=== PATIENT | female | born 1975 | race Hispanic/Latino ===

== ENCOUNTER 2023-06-23 20:15 | Emergency (ER) | payer OTHER ==
--- OUTSIDE RECORDS SUMMARY | 2023-06-23 20:24 | XMS REPORT | Continuity of Care Document ---
Author Name Unknown Address [address] [facility] [place] [address] [facility] Address [address] 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 Role Phone CANDELARIA AARON Primary Care Physician KASEY Mccain Attending Clinician Unavailable OBI-GLORIAGayleROME Attending Clinician Unavailab le OBI-GLORIATHOMASMA Attending Clinician Unavailab JACKIE Daly Attending Clinician Unavaila JACKIE Wood Attending Clinician UnavailCandida Zuniga RN Attending Clinician [phone] JANAY ACOSTA Attending Clinician Unavailab Janay Olvera Attending Clinician [phone] LUDMILA MCMULLEN Attending Clinician LUDMILA Davis Attending Clinician LATASHA Camarillo Attending Clinician Unavailable Latasha Madden MD Attending Clinician [phone] Doctor Unassigned, [place] Attending Clinician U SAMRA Joy Attending Clinician UnavailSamra Choudhury Attending Clinician KATHY TOMLIN Attending Clinician Unavailable Viv Sol MA Attending Clinician Unavailabl e 2, [facility] Attending Clinician Unavailable Candelaria Aaron NP Attending Clinician [phone] CHEN MASTERS Attending Clinician Unavailable CANDELARIA AARON Attending Clinician Unavailab diana Rome MD, Jackie Jaramillo Attending Clinician [phone] Kathy Tomlin PA-C Attending Clinician [phone] Unknown, Attending Attending Clinician Unavailab le Vaccine, [facility] Attending Clinician Unavailable Therapy, [facility]fusion Attending Clinician Unavailable Myesha GRAF, Walker Easton Attending Clinician [phone] WALKER SILVA Attending Clinician Unavailable Brianne Carlos RN Attending Clinician Unavailable Joshua DESAI, Sarah Attending Clinician [phone] SARAH LEWIS Attending Clinician UnavailTASNEEM Falk Attending Clinician Unavailable Abel GRAF, Kayce Puri Attending Clinician [phone] KAYCE ROMAN Attending Clinician Essie De Paz RN, Teri Jaramillo Attending Clinician Unavailab diana Zavala MD, Tasneem Attending Clinician [phone] Anene VEGETABLES COOK, Stephanie Attending Clinician [phone] Provider, [facility] Attending Clinician Un available Tejinder JOLLY, Daniella Palacios Attending Clinician Unavailab Corinne Hernandez MD Attending Clinician [phone] Cintia Sullivan MD Attending Clinician [phone] Jovi AVELAR, Chiquita Erwin Attending Clinician Unavail able CORINNE HATFIELD Attending Clinician UnavailEdmar Fuller PTA Attending Clinician Unavaila KINGS Vargas Attending Clinician Unavailable Viv Chan PT Attending Clinician Unavailab NIKOLAY Beltrán Attending Clinician Unavail able CINTIA SULLIVAN Attending Clinician Unavailable Nikolay Roberts DO Attending Clinician [phone] Only, [facility] Test Attending Clinician Unavailable Jonah Gomez MD Attending Clinician [phone] Rojas MARIE, Balwinder Attending Clinician Unavailab le Lab, [facility] Fam Pob I Attending Clinician Unavailab le Omaghomi VEGETABLES COOK, Domemi Attending Clinician [phone] SOPHIE MURGUIA Attending Clinician Unavailabl JANAY NicoleE Admitting Clinician Unavailab LATASHA Alvarez Admitting Clinician Unavailable Latasha Madden MD Admitting Clinician CHEN MASTERS Admitting Clinician Unavailable KATHY TOMLIN Admitting Clinician Unavailable CORINNE HATFIELD Admitting Clinician Unavailabl e Payers Payer Name Policy Type Policy Number Effective Date Expirati on Date Source MEDICARE PART A \\T\\ [id number] 2009 00:00:00 [place]ICAID OF [place] [id number] 2015 00:00:00 Problems Condition Name Condition Details Condition Category Status Onset Date Resolution Date Last Treatment Date Treating Clinician Comments Source Encounter for colorectal cancer screening Encounter for colorectal cancer screening Disease Active 2022-03 00:00: 00 [facility] Muscle spasm of right lower extremity Muscle spasm of right lower extremity Disease Active 06-05 00:00: 00 [facility] Obesity (BMI 30-39.9) Obesity (BMI 30-39.9) Disease Active 2019-03 00:00: 00 [facility] Chronic pain of right knee Chronic pain of right knee Disease Active 2019-03 00:00: 00 [facility] Hot flashes Hot flashes Disease Active 2019-03 00:00: 00 [facility] Hydradenit is Hydradenit is Disease Active 2019-03 00:00: 00 [facility] Morbid obesity with body mass index of 40.0-49.9 Morbid obesity with body mass index of 40.0-49.9 Disease Active 2018-03 00:00: 00 [facility] Skin lesions Skin lesions Disease Active 11-02 00:00: 00 [facility] Hypovitami nosis D Hypovitami nosis D Disease Active 05-07 00:00: 00 [facility] ESR raised ESR raised Disease Active 05-04 00:00: 00 [facility] 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 worsens in the winter [facility] Depression Depression Disease Active U [facility] Bipolar 1 disorder Bipolar 1 disorder Disease Active [facility] Hyperlipid emia Hyperlipid emia Disease Active [facility] Allergies, Adverse Reactions, Alerts Allergy Name Allergy Type Status Severity Reaction(s) Onset Date Inactive Date Treating Clinician Comments Source Valacycl ovir Hcl Propensi ty to adverse reaction s Active Rash 04-09 00:00: 00 [facility] VALACYCL OVIR HCL DRUG INGREDI Active Rash 04-09 00:00: 00 [facility] Social History Social Habit Start Date Stop Date Quantity Comments Source Gender identity [facility] Sexual orientation [facility] Alcohol intake 2023-04-04 00:00:00 2023-04-04 00:00:00 0 /d [facility] History of Social function 2023-03-25 00:00:00 2023-03-25 00:00:00 [facility] Tobacco use and exposure 2023-02-25 00:00:00 2023-02-25 00:00:00 Smokeless tobacco non-user [facility] Exposure to SARS-CoV-2 (event) 2022-03-20 00:00:00 2022-03-30 09:15:00 Not sure [facility] Sex Assigned At 1975 00:00:00 1975 00:00:00 [facility] Smoking Status Start Date Stop Date Source Never smoked tobacco [facility] Medications Ordered Medication Name Filled Medication Name Start Date Stop Date Current Medication? Ordering Clinician Indication Dosage Frequency Signature (SIG) Comments Components Source butalbital- acetaminoph en-caff (ESGIC) 50-325-40 mg tablet 1 tablet 06-18 00:15: 00 06-18 00:19 :00 No 1{tbl} 1 tablet, Oral, ONCE, 1 dose, On 06/18/23 at 1915, COLBY [facility] benzonatate 100 mg capsule 06 00:00: 00 Yes [id number] 100mg Take 1 capsule by mouth 3 (three) times daily as needed for Cough. [facility] topiramate 50 mg tablet 04-04 00:00: 00 Yes [id number] 50mg Take 1 tablet by mouth in the morning and 1 tablet in the evening. [facility] water for irrigation irrigation solution 03-25 15:55: 00 03-25 16:42 :06 No PRN, Starting on Tue03/25/23 at 0955, Until Tue03/25/23 at 1042, Routine, Intra-op [facility] simethicone (GAS RELIEF (SIMETHICON E)) 40 mg/0.6 mL drops 03-25 15:55: 00 03-25 16:42 :06 No PRN, Starting on Tue03/25/23 at 0955, Until Tue03/25/23 at 1042, Routine, Intra-op [facility] lactated ringers IV infusion 1,000 mL 03-25 14:45: 00 03-25 14:44 :00 No 1000mL at 42 mL/hr, 1,000 mL, IV Infusion, ONCE, 1 dose, On Tue03/25/23 at 0845, Routine, DSU Pre-op [facility] topiramate 50 mg tablet 03-22 00:00: 00 04-04 00:00 :00 No [id number] 50mg Take 1 tablet by mouth in the morning and 1 tablet in the evening. [facility] peg-electro lyte soln (GOLYTELY) 236-22.74-6 .74 -5.86 gram solution 2022-03 2-21 00:00: 00 03-04 05:59 :00 No 4000mL Take 4,000 mL by mouth once now for 1 dose. [facility] nystatin-tr iamcinolone cream 2022-03 00:00: 00 Yes [id number] Apply to area(s) 2 (two) times daily. [facility] topiramate 25 mg tablet 2022-03 00:00: 00 03-22 00:00 :00 No [id number] Take 1 tablet by mouth 2 (two) times daily for 7 days, THEN 2 tablets 2 (two) times daily for 21 days. [facility] ketorolac (TORADOL) injection 30 mg 2022-03 20:15: 00 02-14 19:25 :00 No [id number] 30mg [facility] lamoTRIgine (LAMICTAL) 100 mg tablet 2022-03 12:52: 43 02-14 00:00 :00 No 100mg Take 100 mg by mouth at bedtime. [facility] SUMAtriptan 25 mg tablet 2022-03 00:00: 00 Yes [id number] 25 mg Po x 1 , may repeat dose x 1 after at least 2 Hr, may give up to 100 mg /24Hr [facility] ketorolac (TORADOL) injection 30 mg 2022-03 20:45: 00 02-10 21:20 :00 No 30mg 30 mg, Slow IV Push, ONCE, 1 dose, On Marcie 02/10/23 at 1445, COLBY [facility] sodium chloride (NS) injection 5 mL 2022-03 20:25: 29 Yes 5mL 5 mL, Intravenou s, PRN, Starting on Marcie 02/10/23 at 1425, Until Discontinu ed, Routine, IV line flushing [facility] nirmatrelvi r-ritonavir (PAXLOVID) 300 mg (150 mg x 2)-100 mg tablet 11-05 00:00: 00 02-14 00:00 :00 No [id number] 3{tbl} Take 3 tablets by mouth in the morning and 3 tablets in the evening. [facility] meloxicam 15 mg tablet 03-31 00:00: 00 02-14 00:00 :00 No [id number] 15mg Take 1 tablet by mouth in the morning. Can NOT take with other NSAID's (Ibuprofen ) [facility] nystatin 100,000 unit/gram cream 2021-03 215 00:00: 00 02-14 00:00 :00 No [id number] Apply to area(s) 2 (two) times daily. [facility] Arm Brace (WRIST BRACE MEDIUM) [facility] 2021-03 00:00: 00 Yes [id number] Use as directed, left wrist [facility] ergocalcife rol, vitamin d2, (VITAMIN D2) 1,250 mcg (50,000 unit) capsule 2021-03 00:00: 00 02-14 00:00 :00 No [id number] Take 1 capsule by mouth weekly. [facility] Arm Brace (WRIST BRACE MEDIUM) [facility] 2021-03 00:00: 00 02-14 00:00 :00 No [id number] 9103 Use as directed, left wrist [facility] diclofenac 75 mg EC tablet 2021-03 00:00: 00 02-14 00:00 :00 No [id number] 75mg Take 1 tablet by mouth 2 (two) times daily with meals as needed for Pain. [facility] metoprolol succinate XL 25 mg 24 hr tablet 2021-03 00:00: 00 Yes 25mg Take 1 tablet by mouth in the morning. [facility] ibuprofen (IBU) tablet 800 mg 08-08 17:19: 00 08-08 17:26 :00 No [id number] 800mg [facility] bromphenira mine-pseudo ephedrine-D M (BROMFED DM) 2-30-10 mg/5 mL syrup 08-08 00:00: 00 02-08 00:00 :00 No [id number] 5mL Take 5 mL by mouth 4 (four) times daily as needed for Congestion /Allergies or Cough. [facility] bromphenira mine-pseudo ephedrine-D M (BROMFED DM) 2-30-10 mg/5 mL syrup 05-05 00:00: 00 08-08 00:00 :00 No [id number] 5mL Take 5 mL by mouth 4 (four) times daily as needed for Congestion /Allergies . [facility] benzonatate 100 mg capsule 05-05 00:00: 00 08-08 00:00 :00 No [id number] 200mg Take 2 capsules by mouth every 8 (eight) hours as needed for Cough. [facility] ergocalcife rol, vitamin d2, (VITAMIN D2) 1,250 mcg (50,000 unit) capsule 2020-03 00:00: 00 02-08 00:00 :00 No [id number] Take 1 capsule by mouth weekly. [facility] lamoTRIgine (LAMICTAL) 100 mg tablet 2020-03 09:49: 49 Yes 100mg Take 100 mg by mouth at bedtime. [facility] nystatin 100,000 unit/gram cream 2020-03 00:00: 00 02-08 00:00 :00 No [id number] Apply to area(s) 2 (two) times daily. [facility] tiZANidine 2 mg tablet 2020-03 00:00: 00 02-08 00:00 :00 No [id number] 2mg Take 1 tablet by mouth every 8 (eight) hours as needed (muscle spasms/rig ht knee pain). [facility] Diclofenac Sodium (VOLTAREN) 1 % gel 06-05 00:00: 00 02-08 00:00 :00 No [id number] Apply to area(s) 4 (four) times daily. Apply 4 g qid [facility] acetaminoph en (TYLENOL ARTHRITIS PAIN) 650 mg CR tablet 06-05 00:00: 00 02-08 00:00 :00 No [id number] 650mg Take 1 tablet by mouth every 8 (eight) hours as needed for Pain. [facility] Leg Brace (ANANYA KNEE BRACE) Misc 06-05 00:00: 00 02-08 00:00 :00 No [id number] Use as directed [facility] menthol (BIOFREEZE, MENTHOL,) 4 % gel 06-05 00:00: 00 02-08 00:00 :00 No [id number] Apply 4g QID PRN to affect muscle [facility] nystatin 100,000 unit/gram cream 2019-03 00:00: 00 02-25 00:00 :00 No [id number] Apply to area(s) 2 (two) times daily. [facility] clindamycin 1 % topical solution 2019-03 1 00:00: 00 02-08 00:00 :00 No [id number] Use twice a day as needed at the first sign of a lesion under the arm. Continue until 1 day after lesion is gone. [facility] Immunizations Ordered Immunization Name Filled Immunization Name Date Status Comments Source SARS-COV-2 COVID-19 VACCINE 12 YRS+, BIVALENT 0.5ML, IM, (MODERNA BOOSTER) 2022-02-08 00:00:00 Completed [facility] SARS-COV-2 COVID-19 VACCINE 12 YRS+, BIVALENT 0.5ML, IM, (MODERNA BOOSTER) 2022-02-08 00:00:00 Completed [facility] SARS-COV-2 COVID-19 VACCINE 12 YRS+, BIVALENT 0.5ML, IM, (MODERNA BOOSTER) 2022-02-08 00:00:00 Completed [facility] SARS-COV-2 COVID-19 VACCINE 12 YRS+, BIVALENT 0.5ML, IM, (MODERNA BOOSTER) 2022-02-08 00:00:00 Completed [facility] SARS-COV-2 COVID-19 VACCINE 12 YRS+, BIVALENT 0.5ML, IM, (MODERNA BOOSTER) 2022-02-08 00:00:00 Completed [facility] SARS-COV-2 COVID-19 VACCINE 12 YRS+, BIVALENT 0.5ML, IM, (MODERNA BOOSTER) 2022-02-08 00:00:00 Completed [facility] SARS-COV-2 COVID-19 VACCINE 12 YRS+, BIVALENT 0.5ML, IM, (MODERNA BOOSTER) 2022-02-08 00:00:00 Completed [facility] SARS-COV-2 COVID-19 VACCINE 12 YRS+, BIVALENT 0.5ML, IM, (MODERNA BOOSTER) 2022-02-08 00:00:00 Completed [facility] SARS-COV-2 COVID-19 VACCINE 12 YRS+, BIVALENT 0.5ML, IM, (MODERNA BOOSTER) 2022-02-08 00:00:00 Completed [facility] SARS-COV-2 COVID-19 VACCINE 12 YRS+, BIVALENT 0.5ML, IM, (MODERNA BOOSTER) 2022-02-08 00:00:00 Completed [facility] SARS-COV-2 COVID-19 VACCINE 12 YRS+, BIVALENT 0.5ML, IM, (MODERNA BOOSTER) 2022-02-08 00:00:00 Completed [facility] SARS-COV-2 COVID-19 VACCINE 12 YRS+, BIVALENT 0.5ML, IM, (MODERNA BOOSTER) 2022-02-08 00:00:00 Completed [facility] SARS-COV-2 COVID-19 VACCINE 12 YRS+, BIVALENT 0.5ML, IM, (MODERNA BOOSTER) 2022-02-08 00:00:00 Completed [facility] SARS-COV-2 COVID-19 VACCINE 12 YRS+, BIVALENT 0.5ML, IM, (MODERNA BOOSTER) 2022-02-08 00:00:00 Completed [facility] SARS-COV-2 COVID-19 VACCINE 12 YRS+, BIVALENT 0.5ML, IM, (MODERNA BOOSTER) 2022-02-08 00:00:00 Completed [facility] SARS-COV-2 COVID-19 VACCINE 12 YRS+, BIVALENT 0.5ML, IM, (MODERNA-BLUE TOP) 2022-02-08 00:00:00 Completed [facility] SARS-COV-2 COVID-19 VACCINE 12 YRS+, BIVALENT 0.5ML, IM, (MODERNA-BLUE TOP) 2022-02-08 00:00:00 Completed [facility] Influenza Virus Vaccine Quad IM, Preserv and ABX Free 6 MO-64 YRS 2021-12-23 00:00:00 Completed [facility] Influenza Virus Vaccine Quad IM, Preserv and ABX Free 6 MO-64 YRS 2021-12-23 00:00:00 Completed [facility] Influenza Virus Vaccine Quad IM, Preserv and ABX Free 6 MO-64 YRS 2021-12-23 00:00:00 Completed [facility] Influenza Virus Vaccine Quad IM, Preserv and ABX Free 6 MO-64 YRS 2021-12-23 00:00:00 Completed [facility] Influenza Virus Vaccine Quad IM, Preserv and ABX Free 6 MO-64 YRS 2021-12-23 00:00:00 Completed [facility] Influenza Virus Vaccine Quad IM, Preserv and ABX Free 6 MO-64 YRS 2021-12-23 00:00:00 Completed [facility] Influenza Virus Vaccine Quad IM, Preserv and ABX Free 6 MO-64 YRS 2021-12-23 00:00:00 Completed [facility] Influenza Virus Vaccine Quad IM, Preserv and ABX Free 6 MO-64 YRS 2021-12-23 00:00:00 Completed [facility] Influenza Virus Vaccine Quad IM, Preserv and ABX Free 6 MO-64 YRS 2021-12-23 00:00:00 Completed [facility] Influenza Virus Vaccine Quad IM, Preserv and ABX Free 6 MO-64 YRS 2021-12-23 00:00:00 Completed [facility] Influenza Virus Vaccine Quad IM, Preserv and ABX Free 6 MO-64 YRS 2021-12-23 00:00:00 Completed [facility] Influenza Virus Vaccine Quad IM, Preserv and ABX Free 6 MO-64 YRS 2021-12-23 00:00:00 Completed [facility] Influenza Virus Vaccine Quad IM, Preserv and ABX Free 6 MO-64 YRS 2021-12-23 00:00:00 Completed [facility] Influenza Virus Vaccine Quad IM, Preserv and ABX Free 6 MO-64 YRS 2021-12-23 00:00:00 Completed [facility] Influenza Virus Vaccine Quad IM, Preserv and ABX Free 6 MO-64 YRS 2021-12-23 00:00:00 Completed [facility] Influenza Virus Vaccine Quad IM, Preserv and ABX Free 6 MO-64 YRS 2021-12-23 00:00:00 Completed [facility] Influenza Virus Vaccine Quad IM, Preserv and ABX Free 6 MO-64 YRS 2021-12-23 00:00:00 Completed [facility] Influenza Virus Vaccine Quad IM, Preserv and ABX Free 6 MO-64 YRS 2021-12-23 00:00:00 Completed [facility] Influenza Virus Vaccine Quad IM, Preserv and ABX Free 6 MO-64 YRS 2021-12-23 00:00:00 Completed [facility] BEBTELOVIMAB 2021-08-11 00:00:00 Completed [facility] BEBTELOVIMAB 2021-08-11 00:00:00 Completed [facility] BEBTELOVIIAB 2021-08-11 00:00:00 Completed [facility] BEBTELOVIMAB 2021-08-11 00:00:00 Completed [facility] BEBTELOVIMAB 2021-08-11 00:00:00 Completed [facility] BEBTELOVIIAB 2021-08-11 00:00:00 Completed [facility] BEBTELOVIMAB 2021-08-11 00:00:00 Completed [facility] BEBTELOVIMAB 2021-08-11 00:00:00 Completed [facility] BEBTELOVIMAB 2021-08-11 00:00:00 Completed [facility] BEBTELOVIMAB 2021-08-11 00:00:00 Completed [facility] BEBTELOVIMAB 2021-08-11 00:00:00 Completed [facility] BEBTELOVIMAB 2021-08-11 00:00:00 Completed [facility] BEBTELOVIMAB 2021-08-11 00:00:00 Completed [facility] BEBTELOVIMAB 2021-08-11 00:00:00 Completed [facility] BEBTELOVIMAB 2021-08-11 00:00:00 Completed [facility] BEBTELOVIMAB 2021-08-11 00:00:00 Completed [facility] BEBTELOVIMAB 2021-08-11 00:00:00 Completed [facility] BEBTELOVIIAB 2021-08-11 00:00:00 Completed [facility] BEBTELOVIIAB 2021-08-11 00:00:00 Completed [facility] BEBTELOVIIAB 2021-08-11 00:00:00 Completed [facility] BEBTELOVIMAB 2021-08-11 00:00:00 Completed [facility] BEBTELOVIIAB 2021-08-11 00:00:00 Completed [facility] Influenza Virus Vaccine Quad IM, Preserv and ABX Free 6 MO-64 YRS 2021-02-03 00:00:00 Completed [facility] SARS-COV-2 COVID-19 MODERNA BOOSTER VACCINE 2021-02-03 00:00:00 Completed [facility] Influenza Virus Vaccine Quad IM, Preserv and ABX Free 6 MO-64 YRS 2021-02-03 00:00:00 Completed [facility] SARS-COV-2 COVID-19 MODERNA BOOSTER VACCINE 2021-02-03 00:00:00 Completed [facility] Influenza Virus Vaccine Quad IM, Preserv and ABX Free 6 MO-64 YRS 2021-02-03 00:00:00 Completed [facility] SARS-COV-2 COVID-19 MODERNA BOOSTER VACCINE 2021-02-03 00:00:00 Completed [facility] Influenza Virus Vaccine Quad IM, Preserv and ABX Free 6 MO-64 YRS 2021-02-03 00:00:00 Completed [facility] SARS-COV-2 COVID-19 MODERNA BOOSTER VACCINE 2021-02-03 00:00:00 Completed [facility] Influenza Virus Vaccine Quad IM, Preserv and ABX Free 6 MO-64 YRS 2021-02-03 00:00:00 Completed [facility] SARS-COV-2 COVID-19 MODERNA 0.25ML BOOSTER VACCINE 2021-02-03 00:00:00 Completed [facility] Influenza Virus Vaccine Quad IM, Preserv and ABX Free 6 MO-64 YRS 2021-02-03 00:00:00 Completed [facility] SARS-COV-2 COVID-19 MODERNA 0.25ML BOOSTER VACCINE 2021-02-03 00:00:00 Completed [facility] Influenza Virus Vaccine Quad IM, Preserv and ABX Free 6 MO-64 YRS 2021-02-03 00:00:00 Completed [facility] SARS-COV-2 COVID-19 MODERNA 0.25ML BOOSTER VACCINE 2021-02-03 00:00:00 Completed [facility] Influenza Virus Vaccine Quad IM, Preserv and ABX Free 6 MO-64 YRS 2021-02-03 00:00:00 Completed [facility] SARS-COV-2 COVID-19 MODERNA 0.25ML BOOSTER VACCINE 2021-02-03 00:00:00 Completed [facility] Influenza Virus Vaccine Quad IM, Preserv and ABX Free 6 MO-64 YRS 2021-02-03 00:00:00 Completed [facility] SARS-COV-2 COVID-19 MODERNA 0.25ML BOOSTER VACCINE 2021-02-03 00:00:00 Completed [facility] Influenza Virus Vaccine Quad IM, Preserv and ABX Free 6 MO-64 YRS 2021-02-03 00:00:00 Completed [facility] SARS-COV-2 COVID-19 MODERNA 0.25ML BOOSTER VACCINE 2021-02-03 00:00:00 Completed [facility] Influenza Virus Vaccine Quad IM, Preserv and ABX Free 6 MO-64 YRS 2021-02-03 00:00:00 Completed [facility] SARS-COV-2 COVID-19 MODERNA 0.25ML BOOSTER VACCINE 2021-02-03 00:00:00 Completed [facility] Influenza Virus Vaccine Quad IM, Preserv and ABX Free 6 MO-64 YRS 2021-02-03 00:00:00 Completed [facility] SARS-COV-2 COVID-19 MODERNA 0.25ML BOOSTER VACCINE 2021-02-03 00:00:00 Completed [facility] Influenza Virus Vaccine Quad IM, Preserv and ABX Free 6 MO-64 YRS 2021-02-03 00:00:00 Completed [facility] SARS-COV-2 COVID-19 MODERNA 0.25ML BOOSTER VACCINE 2021-02-03 00:00:00 Completed [facility] Influenza Virus Vaccine Quad IM, Preserv and ABX Free 6 MO-64 YRS 2021-02-03 00:00:00 Completed [facility] SARS-COV-2 COVID-19 MODERNA 0.25ML BOOSTER VACCINE 2021-02-03 00:00:00 Completed [facility] Influenza Virus Vaccine Quad IM, Preserv and ABX Free 6 MO-64 YRS 2021-02-03 00:00:00 Completed [facility] SARS-COV-2 COVID-19 MODERNA 0.25ML BOOSTER VACCINE 2021-02-03 00:00:00 Completed [facility] Influenza Virus Vaccine Quad IM, Preserv and ABX Free 6 MO-64 YRS 2021-02-03 00:00:00 Completed [facility] SARS-COV-2 COVID-19 MODERNA 0.25ML BOOSTER VACCINE 2021-02-03 00:00:00 Completed [facility] Influenza Virus Vaccine Quad IM, Preserv and ABX Free 6 MO-64 YRS 2021-02-03 00:00:00 Completed [facility] SARS-COV-2 COVID-19 MODERNA 0.25ML BOOSTER VACCINE 2021-02-03 00:00:00 Completed [facility] Influenza Virus Vaccine Quad IM, Preserv and ABX Free 6 MO-64 YRS 2021-02-03 00:00:00 Completed [facility] SARS-COV-2 COVID-19 MODERNA 0.25ML BOOSTER VACCINE 2021-02-03 00:00:00 Completed [facility] Influenza Virus Vaccine Quad IM, Preserv and ABX Free 6 MO-64 YRS 2021-02-03 00:00:00 Completed [facility] SARS-COV-2 COVID-19 MODERNA 0.25ML BOOSTER VACCINE 2021-02-03 00:00:00 Completed [facility] Influenza Virus Vaccine Quad IM, Preserv and ABX Free 6 MO-64 YRS 2021-02-03 00:00:00 Completed [facility] SARS-COV-2 COVID-19 MODERNA 0.25ML BOOSTER VACCINE 2021-02-03 00:00:00 Completed [facility] Influenza Virus Vaccine Quad IM, Preserv and ABX Free 6 MO-64 YRS 2021-02-03 00:00:00 Completed [facility] SARS-COV-2 COVID-19 MODERNA 0.25ML BOOSTER VACCINE 2021-02-03 00:00:00 Completed [facility] Influenza Virus Vaccine Quad IM, Preserv and ABX Free 6 MO-64 YRS 2021-02-03 00:00:00 Completed [facility] SARS-COV-2 COVID-19 MODERNA 0.25ML BOOSTER VACCINE 2021-02-03 00:00:00 Completed [facility] Influenza Virus Vaccine Quad IM, Preserv and ABX Free 6 MO-64 YRS 2021-02-03 00:00:00 Completed [facility] SARS-COV-2 COVID-19 MODERNA 0.25ML BOOSTER VACCINE 2021-02-03 00:00:00 Completed [facility] Influenza Virus Vaccine Quad IM, Preserv and ABX Free 6 MO-64 YRS 2021-02-03 00:00:00 Completed [facility] SARS-COV-2 COVID-19 MODERNA 0.25ML BOOSTER VACCINE 2021-02-03 00:00:00 Completed [facility] Influenza Virus Vaccine Quad IM, Preserv and ABX Free 6 MO-64 YRS 2021-02-03 00:00:00 Completed [facility] SARS-COV-2 COVID-19 MODERNA 0.25ML BOOSTER VACCINE 2021-02-03 00:00:00 Completed [facility] Influenza Virus Vaccine Quad IM, Preserv and ABX Free 6 MO-64 YRS 2021-02-03 00:00:00 Completed [facility] SARS-COV-2 COVID-19 MODERNA 0.25ML BOOSTER VACCINE 2021-02-03 00:00:00 Completed [facility] Influenza Virus Vaccine Quad IM, Preserv and ABX Free 6 MO-64 YRS 2021-02-03 00:00:00 Completed [facility] SARS-COV-2 COVID-19 MODERNA 0.25ML BOOSTER VACCINE 2021-02-03 00:00:00 Completed [facility] Influenza Virus Vaccine Quad IM, Preserv and ABX Free 6 MO-64 YRS 2021-02-03 00:00:00 Completed [facility] SARS-COV-2 COVID-19 MODERNA 0.25ML BOOSTER VACCINE 2021-02-03 00:00:00 Completed [facility] Influenza Virus Vaccine Quad IM, Preserv and ABX Free 6 MO-64 YRS 2021-02-03 00:00:00 Completed [facility] SARS-COV-2 COVID-19 MODERNA 0.25ML BOOSTER VACCINE 2021-02-03 00:00:00 Completed [facility] SARS-COV-2 COVID-19 MODERNA VACCINE 2020-07-10 00:00:00 Completed [facility] SARS-COV-2 COVID-19 MODERNA VACCINE 2020-07-10 00:00:00 Completed [facility] SARS-COV-2 COVID-19 MODERNA VACCINE 2020-07-10 00:00:00 Completed [facility] SARS-COV-2 COVID-19 MODERNA VACCINE 2020-07-10 00:00:00 Completed [facility] SARS-COV-2 COVID-19 MODERNA VACCINE 2020-07-10 00:00:00 Completed [facility] SARS-COV-2 COVID-19 MODERNA VACCINE 2020-07-10 00:00:00 Completed [facility] SARS-COV-2 COVID-19 MODERNA VACCINE 2020-07-10 00:00:00 Completed [facility] SARS-COV-2 COVID-19 MODERNA VACCINE 2020-07-10 00:00:00 Completed [facility] SARS-COV-2 COVID-19 MODERNA 12+ YRS VACCINE 2020-07-10 00:00:00 Completed [facility] SARS-COV-2 COVID-19 MODERNA 12+ YRS VACCINE 2020-07-10 00:00:00 Completed [facility] SARS-COV-2 COVID-19 MODERNA 12+ YRS VACCINE 2020-07-10 00:00:00 Completed [facility] SARS-COV-2 COVID-19 MODERNA 12+ YRS VACCINE 2020-07-10 00:00:00 Completed [facility] SARS-COV-2 COVID-19 MODERNA 12+ YRS VACCINE 2020-07-10 00:00:00 Completed [facility] SARS-COV-2 COVID-19 MODERNA 12+ YRS VACCINE 2020-07-10 00:00:00 Completed [facility] SARS-COV-2 COVID-19 MODERNA 12+ YRS VACCINE 2020-07-10 00:00:00 Completed [facility] SARS-COV-2 COVID-19 MODERNA 12+ YRS VACCINE 2020-07-10 00:00:00 Completed [facility] SARS-COV-2 COVID-19 MODERNA 12+ YRS VACCINE 2020-07-10 00:00:00 Completed [facility] SARS-COV-2 COVID-19 MODERNA 12+ YRS VACCINE 2020-07-10 00:00:00 Completed [facility] SARS-COV-2 COVID-19 MODERNA 12+ YRS VACCINE 2020-07-10 00:00:00 Completed [facility] SARS-COV-2 COVID-19 MODERNA 12+ YRS VACCINE 2020-07-10 00:00:00 Completed [facility] SARS-COV-2 COVID-19 MODERNA 12+ YRS VACCINE 2020-07-10 00:00:00 Completed [facility] SARS-COV-2 COVID-19 MODERNA 12+ YRS VACCINE 2020-07-10 00:00:00 Completed [facility] SARS-COV-2 COVID-19 MODERNA 12+ YRS VACCINE 2020-07-10 00:00:00 Completed [facility] SARS-COV-2 COVID-19 MODERNA 12+ YRS VACCINE 2020-07-10 00:00:00 Completed [facility] SARS-COV-2 COVID-19 MODERNA 12+ YRS VACCINE 2020-07-10 00:00:00 Completed [facility] SARS-COV-2 COVID-19 MODERNA 12+ YRS VACCINE 2020-07-10 00:00:00 Completed [facility] SARS-COV-2 COVID-19 MODERNA 12+ YRS VACCINE 2020-07-10 00:00:00 Completed [facility] SARS-COV-2 COVID-19 MODERNA 12+ YRS VACCINE 2020-07-10 00:00:00 Completed [facility] SARS-COV-2 COVID-19 MODERNA 12+ YRS VACCINE 2020-07-10 00:00:00 Completed [facility] SARS-COV-2 COVID-19 MODERNA VACCINE 2020-06-12 00:00:00 Completed [facility] SARS-COV-2 COVID-19 MODERNA VACCINE 2020-06-12 00:00:00 Completed [facility] SARS-COV-2 COVID-19 MODERNA VACCINE 2020-06-12 00:00:00 Completed [facility] SARS-COV-2 COVID-19 MODERNA VACCINE 2020-06-12 00:00:00 Completed [facility] SARS-COV-2 COVID-19 MODERNA VACCINE 2020-06-12 00:00:00 Completed [facility] SARS-COV-2 COVID-19 MODERNA VACCINE 2020-06-12 00:00:00 Completed [facility] SARS-COV-2 COVID-19 MODERNA VACCINE 2020-06-12 00:00:00 Completed [facility] SARS-COV-2 COVID-19 MODERNA VACCINE 2020-06-12 00:00:00 Completed [facility] SARS-COV-2 COVID-19 MODERNA 12+ YRS VACCINE 2020-06-12 00:00:00 Completed [facility] SARS-COV-2 COVID-19 MODERNA 12+ YRS VACCINE 2020-06-12 00:00:00 Completed [facility] SARS-COV-2 COVID-19 MODERNA 12+ YRS VACCINE 2020-06-12 00:00:00 Completed [facility] SARS-COV-2 COVID-19 MODERNA 12+ YRS VACCINE 2020-06-12 00:00:00 Completed [facility] SARS-COV-2 COVID-19 MODERNA 12+ YRS VACCINE 2020-06-12 00:00:00 Completed [facility] SARS-COV-2 COVID-19 MODERNA 12+ YRS VACCINE 2020-06-12 00:00:00 Completed [facility] SARS-COV-2 COVID-19 MODERNA 12+ YRS VACCINE 2020-06-12 00:00:00 Completed [facility] SARS-COV-2 COVID-19 MODERNA 12+ YRS VACCINE 2020-06-12 00:00:00 Completed [facility] SARS-COV-2 COVID-19 MODERNA 12+ YRS VACCINE 2020-06-12 00:00:00 Completed [facility] SARS-COV-2 COVID-19 MODERNA 12+ YRS VACCINE 2020-06-12 00:00:00 Completed [facility] SARS-COV-2 COVID-19 MODERNA 12+ YRS VACCINE 2020-06-12 00:00:00 Completed [facility] SARS-COV-2 COVID-19 MODERNA 12+ YRS VACCINE 2020-06-12 00:00:00 Completed [facility] SARS-COV-2 COVID-19 MODERNA 12+ YRS VACCINE 2020-06-12 00:00:00 Completed [facility] SARS-COV-2 COVID-19 MODERNA 12+ YRS VACCINE 2020-06-12 00:00:00 Completed [facility] SARS-COV-2 COVID-19 MODERNA 12+ YRS VACCINE 2020-06-12 00:00:00 Completed [facility] SARS-COV-2 COVID-19 MODERNA 12+ YRS VACCINE 2020-06-12 00:00:00 Completed [facility] SARS-COV-2 COVID-19 MODERNA 12+ YRS VACCINE 2020-06-12 00:00:00 Completed [facility] SARS-COV-2 COVID-19 MODERNA 12+ YRS VACCINE 2020-06-12 00:00:00 Completed [facility] SARS-COV-2 COVID-19 MODERNA 12+ YRS VACCINE 2020-06-12 00:00:00 Completed [facility] SARS-COV-2 COVID-19 MODERNA 12+ YRS VACCINE 2020-06-12 00:00:00 Completed [facility] SARS-COV-2 COVID-19 MODERNA 12+ YRS VACCINE 2020-06-12 00:00:00 Completed [facility] Influenza Virus Vaccine 2019-12-13 00:00:00 Completed [facility] Influenza Virus Vaccine 2019-12-13 00:00:00 Completed [facility] Influenza Virus Vaccine 2019-12-13 00:00:00 Completed [facility] Influenza Virus Vaccine 2019-12-13 00:00:00 Completed [facility] Influenza Virus Vaccine 2019-12-13 00:00:00 Completed [facility] Influenza Virus Vaccine 2019-12-13 00:00:00 Completed [facility] Influenza Virus Vaccine 2019-12-13 00:00:00 Completed [facility] Influenza Virus Vaccine 2019-12-13 00:00:00 Completed [facility] Influenza Virus Vaccine 2019-12-13 00:00:00 Completed [facility] Influenza Virus Vaccine 2019-12-13 00:00:00 Completed [facility] Influenza Virus Vaccine 2019-12-13 00:00:00 Completed [facility] Influenza Virus Vaccine 2019-12-13 00:00:00 Completed [facility] Influenza Virus Vaccine 2019-12-13 00:00:00 Completed [facility] Influenza Virus Vaccine 2019-12-13 00:00:00 Completed [facility] Influenza Virus Vaccine 2019-12-13 00:00:00 Completed [facility] Influenza Virus Vaccine 2019-12-13 00:00:00 Completed [facility] Influenza Virus Vaccine 2019-12-13 00:00:00 Completed [facility] Influenza Virus Vaccine 2019-12-13 00:00:00 Completed [facility] Influenza Virus Vaccine 2019-12-13 00:00:00 Completed [facility] Influenza Virus Vaccine 2019-12-13 00:00:00 Completed [facility] Influenza Virus Vaccine 2019-12-13 00:00:00 Completed [facility] Influenza Virus Vaccine 2019-12-13 00:00:00 Completed [facility] Influenza Virus Vaccine 2019-12-13 00:00:00 Completed [facility] Influenza Virus Vaccine 2019-12-13 00:00:00 Completed [facility] Influenza Virus Vaccine 2019-12-13 00:00:00 Completed [facility] Influenza Virus Vaccine 2019-12-13 00:00:00 Completed [facility] Influenza Virus Vaccine 2019-12-13 00:00:00 Completed [facility] Influenza Virus Vaccine 2019-12-13 00:00:00 Completed [facility] Influenza Virus Vaccine 2019-12-13 00:00:00 Completed [facility] Influenza Virus Vaccine Quad .5 mL IM 6+ MO 2019-02-01 00:00:00 Completed [facility] Influenza Virus Vaccine Quad .5 mL IM 6+ MO 2019-02-01 00:00:00 Completed [facility] Influenza Virus Vaccine Quad .5 mL IM 6+ MO 2019-02-01 00:00:00 Completed [facility] Influenza Virus Vaccine Quad .5 mL IM 6+ MO 2019-02-01 00:00:00 Completed [facility] Influenza Virus Vaccine Quad .5 mL IM 6+ MO 2019-02-01 00:00:00 Completed [facility] Influenza Virus Vaccine Quad .5 mL IM 6+ MO 2019-02-01 00:00:00 Completed [facility] Influenza Virus Vaccine Quad .5 mL IM 6+ MO 2019-02-01 00:00:00 Completed [facility] Influenza Virus Vaccine Quad .5 mL IM 6+ MO 2019-02-01 00:00:00 Completed [facility] Influenza Virus Vaccine Quad .5 mL IM 6+ MO 2019-02-01 00:00:00 Completed [facility] Influenza Virus Vaccine Quad .5 mL IM 6+ MO 2019-02-01 00:00:00 Completed [facility] Influenza Virus Vaccine Quad .5 mL IM 6+ MO 2019-02-01 00:00:00 Completed [facility] Influenza Virus Vaccine Quad .5 mL IM 6+ MO 2019-02-01 00:00:00 Completed [facility] Influenza Virus Vaccine Quad .5 mL IM 6+ MO 2019-02-01 00:00:00 Completed [facility] Influenza Virus Vaccine Quad .5 mL IM 6+ MO 2019-02-01 00:00:00 Completed [facility] Influenza Virus Vaccine Quad .5 mL IM 6+ MO 2019-02-01 00:00:00 Completed [facility] Influenza Virus Vaccine Quad .5 mL IM 6+ MO 2019-02-01 00:00:00 Completed [facility] Influenza Virus Vaccine Quad .5 mL IM 6+ MO 2019-02-01 00:00:00 Completed [facility] Influenza Virus Vaccine Quad .5 mL IM 6+ MO 2019-02-01 00:00:00 Completed [facility] Influenza Virus Vaccine Quad .5 mL IM 6+ MO 2019-02-01 00:00:00 Completed [facility] Influenza Virus Vaccine Quad .5 mL IM 6+ MO 2019-02-01 00:00:00 Completed [facility] Influenza Virus Vaccine Quad .5 mL IM 6+ MO 2019-02-01 00:00:00 Completed [facility] Influenza Virus Vaccine Quad .5 mL IM 6+ MO 2019-02-01 00:00:00 Completed [facility] Influenza Virus Vaccine Quad .5 mL IM 6+ MO 2019-02-01 00:00:00 Completed [facility] Influenza Virus Vaccine Quad .5 mL IM 6+ MO 2019-02-01 00:00:00 Completed [facility] Influenza Virus Vaccine Quad .5 mL IM 6+ MO 2019-02-01 00:00:00 Completed [facility] Influenza Virus Vaccine Quad .5 mL IM 6+ MO 2019-02-01 00:00:00 Completed [facility] Influenza Virus Vaccine Quad .5 mL IM 6+ MO 2019-02-01 00:00:00 Completed [facility] Influenza Virus Vaccine Quad .5 mL IM 6+ MO 2019-02-01 00:00:00 Completed [facility] Influenza Virus Vaccine Quad .5 mL IM 6+ MO 2019-02-01 00:00:00 Completed [facility] Influenza Virus Vaccine Quad IM 3+ 2018-01-16 00:00:00 Completed [facility] Influenza Virus Vaccine Quad IM 3+ 2018-01-16 00:00:00 Completed [facility] Influenza Virus Vaccine Quad IM 3+ 2018-01-16 00:00:00 Completed [facility] Influenza Virus Vaccine Quad IM 3+ YRS 2018-01-16 00:00:00 Completed [facility] Influenza Virus Vaccine Quad IM 3+ YRS 2018-01-16 00:00:00 Completed [facility] Influenza Virus Vaccine Quad IM 3+ YRS 2018-01-16 00:00:00 Completed [facility] Influenza Virus Vaccine Quad IM 3+ 2018-01-16 00:00:00 Completed [facility] Influenza Virus Vaccine Quad IM 3+ YRS 2018-01-16 00:00:00 Completed [facility] Influenza Virus Vaccine Quad IM 3+ YRS 2018-01-16 00:00:00 Completed [facility] Influenza Virus Vaccine Quad IM 3+ YRS 2018-01-16 00:00:00 Completed [facility] Influenza Virus Vaccine Quad IM 3+ YRS 2018-01-16 00:00:00 Completed [facility] Influenza Virus Vaccine Quad IM 3+ YRS 2018-01-16 00:00:00 Completed [facility] Influenza Virus Vaccine Quad IM 3+ YRS 2018-01-16 00:00:00 Completed [facility] Influenza Virus Vaccine Quad IM 3+ YRS 2018-01-16 00:00:00 Completed [facility] Influenza Virus Vaccine Quad IM 3+ YRS 2018-01-16 00:00:00 Completed [facility] Influenza Virus Vaccine Quad IM 3+ YRS 2018-01-16 00:00:00 Completed [facility] Influenza Virus Vaccine Quad IM 3+ YRS 2018-01-16 00:00:00 Completed [facility] Influenza Virus Vaccine Quad IM 3+ YRS 2018-01-16 00:00:00 Completed [facility] Influenza Virus Vaccine Quad IM 3+ YRS 2018-01-16 00:00:00 Completed [facility] Influenza Virus Vaccine Quad IM 3+ YRS 2018-01-16 00:00:00 Completed [facility] Influenza Virus Vaccine Quad IM 3+ YRS 2018-01-16 00:00:00 Completed [facility] Influenza Virus Vaccine Quad IM 3+ YRS 2018-01-16 00:00:00 Completed [facility] Influenza Virus Vaccine Quad IM 3+ YRS 2018-01-16 00:00:00 Completed [facility] Influenza Virus Vaccine Quad IM 3+ YRS 2018-01-16 00:00:00 Completed [facility] Influenza Virus Vaccine Quad IM 3+ YRS 2018-01-16 00:00:00 Completed [facility] Influenza Virus Vaccine Quad IM 3+ YRS 2018-01-16 00:00:00 Completed [facility] Influenza Virus Vaccine Quad IM 3+ YRS 2018-01-16 00:00:[address] [facility] Influenza Virus Vaccine Quad IM 3+ YRS 2018-01-16 00:00:[address] [facility] Influenza Virus Vaccine Quad IM 3+ YRS 2018-01-16 00:00:00 Completed [facility] Influenza Virus Vaccine Quad IM 3+ YRS 2017-01-13 00:00:00 Completed [facility] Influenza Virus Vaccine Quad IM 3+ YRS 2017-01-13 00:00:00 Completed [facility] Influenza Virus Vaccine Quad IM 3+ YRS 2017-01-13 00:00:00 Completed [facility] Influenza Virus Vaccine Quad IM 3+ YRS 2017-01-13 00:00:[address] [facility] Influenza Virus Vaccine Quad IM 3+ YRS 2017-01-13 00:00:00 Completed [facility] Influenza Virus Vaccine Quad IM 3+ YRS 2017-01-13 00:00:00 Completed [facility] Influenza Virus Vaccine Quad IM 3+ YRS 2017-01-13 00:00:00 Completed [facility] Influenza Virus Vaccine Quad IM 3+ YRS 2017-01-13 00:00:00 Completed [facility] Influenza Virus Vaccine Quad IM 3+ YRS 2017-01-13 00:00:00 Completed [facility] Influenza Virus Vaccine Quad IM 3+ YRS 2017-01-13 00:00:00 Completed [facility] Influenza Virus Vaccine Quad IM 3+ YRS 2017-01-13 00:00:00 Completed [facility] Influenza Virus Vaccine Quad IM 3+ YRS 2017-01-13 00:00:00 Completed [facility] Influenza Virus Vaccine Quad IM 3+ YRS 2017-01-13 00:00:00 Completed [facility] Influenza Virus Vaccine Quad IM 3+ YRS 2017-01-13 00:00:00 Completed [facility] Influenza Virus Vaccine Quad IM 3+ YRS 2017-01-13 00:00:00 Completed [facility] Influenza Virus Vaccine Quad IM 3+ YRS 2017-01-13 00:00:00 Completed [facility] Influenza Virus Vaccine Quad IM 3+ YRS 2017-01-13 00:00:00 Completed [facility] Influenza Virus Vaccine Quad IM 3+ YRS 2017-01-13 00:00:00 Completed [facility] Influenza Virus Vaccine Quad IM 3+ YRS 2017-01-13 00:00:00 Completed [facility] Influenza Virus Vaccine Quad IM 3+ YRS 2017-01-13 00:00:00 Completed [facility] Influenza Virus Vaccine Quad IM 3+ YRS 2017-01-13 00:00:00 Completed [facility] Influenza Virus Vaccine Quad IM 3+ YRS 2017-01-13 00:00:00 Completed [facility] Influenza Virus Vaccine Quad IM 3+ YRS 2017-01-13 00:00:00 Completed [facility] Influenza Virus Vaccine Quad IM 3+ YRS 2017-01-13 00:00:00 Completed [facility] Influenza Virus Vaccine Quad IM 3+ YRS 2017-01-13 00:00:00 Completed [facility] Influenza Virus Vaccine Quad IM 3+ YRS 2017-01-13 00:00:00 Completed [facility] Influenza Virus Vaccine Quad IM 3+ YRS 2017-01-13 00:00:00 Completed [facility] Influenza Virus Vaccine Quad IM 3+ YRS 2017-01-13 00:00:00 Completed [facility] Influenza Virus Vaccine Quad IM 3+ YRS 2017-01-13 00:00:00 Completed [facility] Influenza Virus Vaccine Quad IM 3+ YRS 2016-01-19 00:00:00 Completed [facility] 2016-01-19 00:00:00 Completed [facility] Influenza Virus Vaccine Quad IM 3+ YRS 2016-01-19 00:00:00 Completed [facility] 2016-01-19 00:00:00 Completed [facility] Influenza Virus Vaccine Quad IM 3+ YRS 2016-01-19 00:00:00 Completed [facility] 2016-01-19 00:00:00 Completed [facility] Influenza Virus Vaccine Quad IM 3+ YRS 2016-01-19 00:00:00 Completed [facility] 2016-01-19 00:00:00 Completed [facility] Influenza Virus Vaccine Quad IM 3+ YRS 2016-01-19 00:00:00 Completed [facility] 2016-01-19 00:00:00 Completed [facility] Influenza Virus Vaccine Quad IM 3+ YRS 2016-01-19 00:00:00 Completed [facility] 2016-01-19 00:00:00 Completed [facility] Influenza Virus Vaccine Quad IM 3+ YRS 2016-01-19 00:00:00 Completed [facility] 2016-01-19 00:00:00 Completed [facility] Influenza Virus Vaccine Quad IM 3+ YRS 2016-01-19 00:00:00 Completed [facility] 2016-01-19 00:00:00 Completed [facility] Influenza Virus Vaccine Quad IM 3+ YRS 2016-01-19 00:00:00 Completed [facility] 2016-01-19 00:00:00 Completed [facility] Influenza Virus Vaccine Quad IM 3+ YRS 2016-01-19 00:00:00 Completed [facility] TD[facility] 2016-01-19 00:00:00 Completed [facility] Influenza Virus Vaccine Quad IM 3+ YRS 2016-01-19 00:00:00 Completed [facility] 2016-01-19 00:00:00 Completed [facility] Influenza Virus Vaccine Quad IM 3+ YRS 2016-01-19 00:00:00 Completed [facility] 2016-01-19 00:00:00 Completed [facility] Influenza Virus Vaccine Quad IM 3+ YRS 2016-01-19 00:00:00 Completed [facility] 2016-01-19 00:00:00 Completed [facility] Influenza Virus Vaccine Quad IM 3+ YRS 2016-01-19 00:00:00 Completed [facility] 2016-01-19 00:00:00 Completed [facility] Influenza Virus Vaccine Quad IM 3+ YRS 2016-01-19 00:00:00 Completed [facility] 2016-01-19 00:00:00 Completed [facility] Influenza Virus Vaccine Quad IM 3+ YRS 2016-01-19 00:00:00 Completed [facility] 2016-01-19 00:00:00 Completed [facility] Influenza Virus Vaccine Quad IM 3+ YRS 2016-01-19 00:00:00 Completed [facility] 2016-01-19 00:00:00 Completed [facility] Influenza Virus Vaccine Quad IM 3+ YRS 2016-01-19 00:00:00 Completed [facility] 2016-01-19 00:00:00 Completed [facility] Influenza Virus Vaccine Quad IM 3+ YRS 2016-01-19 00:00:00 Completed [facility] 2016-01-19 00:00:00 Completed [facility] Influenza Virus Vaccine Quad IM 3+ YRS 2016-01-19 00:00:00 Completed [facility] 2016-01-19 00:00:00 Completed [facility] Influenza Virus Vaccine Quad IM 3+ YRS 2016-01-19 00:00:00 Completed [facility] 2016-01-19 00:00:00 Completed [facility] Influenza Virus Vaccine Quad IM 3+ YRS 2016-01-19 00:00:00 Completed [facility] 2016-01-19 00:00:00 Completed [facility] Influenza Virus Vaccine Quad IM 3+ YRS 2016-01-19 00:00:00 Completed [facility] 2016-01-19 00:00:00 Completed [facility] Influenza Virus Vaccine Quad IM 3+ YRS 2016-01-19 00:00:00 Completed [facility] 2016-01-19 00:00:00 Completed [facility] Influenza Virus Vaccine Quad IM 3+ YRS 2016-01-19 00:00:00 Completed [facility] 2016-01-19 00:00:00 Completed [facility] Influenza Virus Vaccine Quad IM 3+ YRS 2016-01-19 00:00:00 Completed [facility] 2016-01-19 00:00:00 Completed [facility] Influenza Virus Vaccine Quad IM 3+ YRS 2016-01-19 00:00:00 Completed [facility] 2016-01-19 00:00:00 Completed [facility] Influenza Virus Vaccine Quad IM 3+ YRS 2016-01-19 00:00:00 Completed [facility] 2016-01-19 00:00:00 Completed [facility] Influenza Virus Vaccine Quad IM 3+ YRS 2016-01-19 00:00:00 Completed [facility] 2016-01-19 00:00:00 Completed [facility] Influenza Virus Vaccine Quad IM Multi-dose 6+ MO 2015-01-21 00:00:00 Completed [facility] Influenza Virus Vaccine Quad IM Multi-dose 6+ MO 2015-01-21 00:00:00 Completed [facility] Influenza Virus Vaccine Quad IM Multi-dose 6+ MO 2015-01-21 00:00:00 Completed [facility] Influenza Virus Vaccine Quad IM Multi-dose 6+ MO 2015-01-21 00:00:00 Completed [facility] Influenza Virus Vaccine Quad IM Multi-dose 6+ MO 2015-01-21 00:00:00 Completed [facility] Influenza Virus Vaccine Quad IM Multi-dose 6+ MO 2015-01-21 00:00:00 Completed [facility] Influenza Virus Vaccine Quad IM Multi-dose 6+ MO 2015-01-21 00:00:00 Completed [facility] Influenza Virus Vaccine Quad IM Multi-dose 6+ MO 2015-01-21 00:00:00 Completed [facility] Influenza Virus Vaccine Quad IM Multi-dose 6+ MO 2015-01-21 00:00:00 Completed [facility] Influenza Virus Vaccine Quad IM Multi-dose 6+ MO 2015-01-21 00:00:00 Completed [facility] Influenza Virus Vaccine Quad IM Multi-dose 6+ MO 2015-01-21 00:00:00 Completed [facility] Influenza Virus Vaccine Quad IM Multi-dose 6+ MO 2015-01-21 00:00:00 Completed [facility] Influenza Virus Vaccine Quad IM Multi-dose 6+ MO 2015-01-21 00:00:00 Completed [facility] Influenza Virus Vaccine Quad IM Multi-dose 6+ MO 2015-01-21 00:00:00 Completed [facility] Influenza Virus Vaccine Quad IM Multi-dose 6+ MO 2015-01-21 00:00:00 Completed [facility] Influenza Virus Vaccine Quad IM Multi-dose 6+ MO 2015-01-21 00:00:00 Completed [facility] Influenza Virus Vaccine Quad IM Multi-dose 6+ MO 2015-01-21 00:00:00 Completed [facility] Influenza Virus Vaccine Quad IM Multi-dose 6+ MO 2015-01-21 00:00:00 Completed [facility] Influenza Virus Vaccine Quad IM Multi-dose 6+ MO 2015-01-21 00:00:00 Completed [facility] Influenza Virus Vaccine Quad IM Multi-dose 6+ MO 2015-01-21 00:00:00 Completed [facility] Influenza Virus Vaccine Quad IM Multi-dose 6+ MO 2015-01-21 00:00:00 Completed [facility] Influenza Virus Vaccine Quad IM Multi-dose 6+ MO 2015-01-21 00:00:00 Completed [facility] Influenza Virus Vaccine Quad IM Multi-dose 6+ MO 2015-01-21 00:00:00 Completed [facility] Influenza Virus Vaccine Quad IM Multi-dose 6+ MO 2015-01-21 00:00:00 Completed [facility] Influenza Virus Vaccine Quad IM Multi-dose 6+ MO 2015-01-21 00:00:00 Completed [facility] Influenza Virus Vaccine Quad IM Multi-dose 6+ MO 2015-01-21 00:00:00 Completed [facility] Influenza Virus Vaccine Quad IM Multi-dose 6+ MO 2015-01-21 00:00:00 Completed [facility] Influenza Virus Vaccine Quad IM Multi-dose 6+ MO 2015-01-21 00:00:00 Completed [facility] Influenza Virus Vaccine Quad IM Multi-dose 6+ MO 2015-01-21 00:00:00 Completed [facility] Influenza Virus Vaccine Quad IM Multi-dose 6+ MO Unknown Completed [facility] Influenza Virus Vaccine Quad IM 3+ YRS Unknown Completed [facility] TDAP Unknown Completed [facility] Influenza Virus Vaccine Quad IM 3+ YRS Unknown Completed [facility] Influenza Virus Vaccine Quad IM 3+ YRS Unknown Completed [facility] Influenza Virus Vaccine Quad .5 mL IM 6+ MO (FLUZONE/FLULAVAL/F LUARIX) Unknown Completed [facility] Influenza Virus Vaccine Unknown Completed [facility] SARS-COV-2 COVID-19 MODERNA 12+ YRS VACCINE Unknown Completed [facility] SARS-COV-2 COVID-19 MODERNA 12+ YRS VACCINE Unknown Completed [facility] Influenza Virus Vaccine Quad IM Multi-dose 6+ MO Unknown Completed [facility] Influenza Virus Vaccine Quad IM 3+ YRS Unknown Completed [facility] TDAP Unknown Completed [facility] Influenza Virus Vaccine Quad IM 3+ YRS Unknown Completed [facility] Influenza Virus Vaccine Quad IM 3+ YRS Unknown Completed [facility] Influenza Virus Vaccine Quad .5 mL IM 6+ MO (FLUZONE/FLULAVAL/F LUARIX) Unknown Completed [facility] Influenza Virus Vaccine Unknown Completed [facility] SARS-COV-2 COVID-19 MODERNA 12+ YRS VACCINE Unknown Completed [facility] SARS-COV-2 COVID-19 MODERNA 12+ YRS VACCINE Unknown Completed [facility] Influenza Virus Vaccine Quad IM, Preserv and ABX Free 6 MO-64 YRS (FLUCELVAX) Unknown Completed [facility] SARS-COV-2 COVID-19 MODERNA 0.25ML BOOSTER VACCINE Unknown Completed [facility] BEBTELOVIIAB Unknown Completed [facility] Influenza Virus Vaccine Quad IM, Preserv and ABX Free 6 MO-64 YRS (FLUCELVAX) Unknown Completed [facility] SARS-COV-2 COVID-19 VACCINE 12 YRS+, BIVALENT 0.5ML, IM, (MODERNA-BLUE TOP) Unknown [facility] Vaccine Quad IM, Preserv and ABX Free 6 MO-64 YRS (FLUCELVAX) Unknown Completed [facility] Influenza Virus Vaccine Quad IM Multi-dose 6+ MO Unknown Completed [facility] Influenza Virus Vaccine Quad IM 3+ YRS Unknown Completed [facility] TDAP Unknown Completed [facility] Influenza Virus Vaccine Quad IM 3+ YRS Unknown Completed [facility] Influenza Virus Vaccine Quad IM 3+ YRS Unknown Completed [facility] Influenza Virus Vaccine Quad .5 mL IM 6+ MO (FLUZONE/FLULAVAL/F LUARIX) Unknown Completed [facility] Influenza Virus Vaccine Unknown Completed [facility] SARS-COV-2 COVID-19 MODERNA 12+ YRS VACCINE Unknown Completed [facility] SARS-COV-2 COVID-19 MODERNA 12+ YRS VACCINE Unknown Completed [facility] Influenza Virus Vaccine Quad IM, Preserv and ABX Free 6 MO-64 YRS (FLUCELVAX) Unknown Completed [facility] SARS-COV-2 COVID-19 MODERNA 0.25ML BOOSTER VACCINE Unknown Completed [facility] BEBTELOVIIAB Unknown Completed [facility] Influenza Virus Vaccine Quad IM, Preserv and ABX Free 6 MO-64 YRS (FLUCELVAX) Unknown Completed [facility] SARS-COV-2 COVID-19 VACCINE 12 YRS+, BIVALENT 0.5ML, IM, (MODERNA-BLUE TOP) Unknown [facility] Virus Vaccine Quad IM, Preserv and ABX Free 6 MO-64 YRS (FLUCELVAX) Unknown Completed [facility] Influenza Virus Vaccine Quad IM Multi-dose 6+ MO Unknown Completed [facility] Influenza Virus Vaccine Quad IM 3+ YRS Unknown Completed [facility] TDAP Unknown Completed [facility] Influenza Virus Vaccine Quad IM 3+ YRS Unknown Completed [facility] Influenza Virus Vaccine Quad IM 3+ YRS Unknown Completed [facility] Influenza Virus Vaccine Quad .5 mL IM 6+ MO (FLUZONE/FLULAVAL/F LUARIX) Unknown Completed [facility] Influenza Virus Vaccine Unknown Completed [facility] SARS-COV-2 COVID-19 MODERNA 12+ YRS VACCINE Unknown Completed [facility] SARS-COV-2 COVID-19 MODERNA 12+ YRS VACCINE Unknown Completed [facility] Influenza Virus Vaccine Quad IM, Preserv and ABX Free 6 MO-64 YRS (FLUCELVAX) Unknown Completed [facility] SARS-COV-2 COVID-19 MODERNA 0.25ML BOOSTER VACCINE Unknown Completed [facility] BEBTELOVIMAB Unknown Completed [facility] Influenza Virus Vaccine Quad IM, Preserv and ABX Free 6 MO-64 YRS (FLUCELVAX) Unknown Completed [facility] SARS-COV-2 COVID-19 VACCINE 12 YRS+, BIVALENT 0.5ML, IM, (MODERNA-BLUE TOP) Unknown [facility] Virus Vaccine Quad IM, Preserv and ABX Free 6 MO-64 YRS (FLUCELVAX) Unknown Completed [facility] Influenza Virus Vaccine Quad IM Multi-dose 6+ MO Unknown Completed [facility] Influenza Virus Vaccine Quad IM 3+ YRS Unknown Completed [facility] TDAP Unknown Completed [facility] Influenza Virus Vaccine Quad IM 3+ YRS Unknown Completed [facility] Influenza Virus Vaccine Quad IM 3+ YRS Unknown Completed [facility] Influenza Virus Vaccine Quad .5 mL IM 6+ MO (FLUZONE/FLULAVAL/F LUARIX) Unknown Completed [facility] Influenza Virus Vaccine Unknown Completed [facility] SARS-COV-2 COVID-19 MODERNA 12+ YRS VACCINE Unknown Completed [facility] SARS-COV-2 COVID-19 MODERNA 12+ YRS VACCINE Unknown Completed [facility] Influenza Virus Vaccine Quad IM, Preserv and ABX Free 6 MO-64 YRS (FLUCELVAX) Unknown Completed [facility] SARS-COV-2 COVID-19 MODERNA 0.25ML BOOSTER VACCINE Unknown Completed [facility] BEBTELOVIMAB Unknown Completed [facility] Influenza Virus Vaccine Quad IM, Preserv and ABX Free 6 MO-64 YRS (FLUCELVAX) Unknown Completed [facility] SARS-COV-2 COVID-19 VACCINE 12 YRS+, BIVALENT 0.5ML, IM, (MODERNA-BLUE TOP) Unknown [facility] Virus Vaccine Quad IM, Preserv and ABX Free 6 MO-64 YRS (FLUCELVAX) Unknown Completed [facility] Influenza Virus Vaccine Quad IM Multi-dose 6+ MO Unknown Completed [facility] Influenza Virus Vaccine Quad IM 3+ YRS Unknown Completed [facility] TDAP Unknown Completed [facility] Influenza Virus Vaccine Quad IM 3+ YRS Unknown Completed [facility] Influenza Virus Vaccine Quad IM 3+ YRS Unknown Completed [facility] Influenza Virus Vaccine Quad .5 mL IM 6+ MO (FLUZONE/FLULAVAL/F LUARIX) Unknown Completed [facility] Influenza Virus Vaccine Unknown Completed [facility] SARS-COV-2 COVID-19 MODERNA 12+ YRS VACCINE Unknown Completed [facility] SARS-COV-2 COVID-19 MODERNA 12+ YRS VACCINE Unknown Completed [facility] Influenza Virus Vaccine Quad IM, Preserv and ABX Free 6 MO-64 YRS (FLUCELVAX) Unknown Completed [facility] SARS-COV-2 COVID-19 MODERNA 0.25ML BOOSTER VACCINE Unknown Completed [facility] BEBTELOVIMAB Unknown Completed [facility] Influenza Virus Vaccine Quad IM, Preserv and ABX Free 6 MO-64 YRS (FLUCELVAX) Unknown Completed [facility] SARS-COV-2 COVID-19 VACCINE 12 YRS+, BIVALENT 0.5ML, IM, (MODERNA-BLUE TOP) Unknown [facility] Virus Vaccine Quad IM, Preserv and ABX Free 6 MO-64 YRS (FLUCELVAX) Unknown Completed [facility] Influenza Virus Vaccine Quad IM Multi-dose 6+ MO Unknown Completed [facility] Influenza Virus Vaccine Quad IM 3+ YRS Unknown Completed [facility] TDAP Unknown Completed [facility] Influenza Virus Vaccine Quad IM 3+ YRS Unknown Completed [facility] Influenza Virus Vaccine Quad IM 3+ YRS Unknown Completed [facility] Influenza Virus Vaccine Quad .5 mL IM 6+ MO (FLUZONE/FLULAVAL/F LUARIX) Unknown Completed [facility] Influenza Virus Vaccine Unknown Completed [facility] SARS-COV-2 COVID-19 MODERNA 12+ YRS VACCINE Unknown Completed [facility] SARS-COV-2 COVID-19 MODERNA 12+ YRS VACCINE Unknown Completed [facility] Influenza Virus Vaccine Quad IM, Preserv and ABX Free 6 MO-64 YRS (FLUCELVAX) Unknown Completed [facility] SARS-COV-2 COVID-19 MODERNA 0.25ML BOOSTER VACCINE Unknown Completed [facility] BEBTELOVIMAB Unknown Completed [facility] Influenza Virus Vaccine Quad IM, Preserv and ABX Free 6 MO-64 YRS (FLUCELVAX) Unknown Completed [facility] SARS-COV-2 COVID-19 VACCINE 12 YRS+, BIVALENT 0.5ML, IM, (MODERNA-BLUE TOP) Unknown [facility] Influ[facility] Virus Vaccine Quad IM, Preserv and ABX Free 6 MO-64 YRS (FLUCELVAX) Unknown Completed [facility] Influenza Virus Vaccine Quad IM Multi-dose 6+ MO Unknown Completed [facility] Influenza Virus Vaccine Quad IM 3+ YRS Unknown Completed [facility] TDAP Unknown Completed [facility] Influenza Virus Vaccine Quad IM 3+ YRS Unknown Completed [facility] Influenza Virus Vaccine Quad IM 3+ YRS Unknown Completed [facility] Influenza Virus Vaccine Quad .5 mL IM 6+ MO (FLUZONE/FLULAVAL/F LUARIX) Unknown Completed [facility] Influenza Virus Vaccine Unknown Completed [facility] SARS-COV-2 COVID-19 MODERNA 12+ YRS VACCINE Unknown Completed [facility] SARS-COV-2 COVID-19 MODERNA 12+ YRS VACCINE Unknown Completed [facility] Influenza Virus Vaccine Quad IM, Preserv and ABX Free 6 MO-64 YRS (FLUCELVAX) Unknown Completed [facility] SARS-COV-2 COVID-19 MODERNA 0.25ML BOOSTER VACCINE Unknown Completed [facility] BEBTELOVIMAB Unknown Completed [facility] Influenza Virus Vaccine Quad IM, Preserv and ABX Free 6 MO-64 YRS (FLUCELVAX) Unknown Completed [facility] SARS-COV-2 COVID-19 VACCINE 12 YRS+, BIVALENT 0.5ML, IM, (MODERNA-BLUE TOP) Unknown [facility] Virus Vaccine Quad IM, Preserv and ABX Free 6 MO-64 YRS (FLUCELVAX) Unknown Completed [facility] Influenza Virus Vaccine Quad IM Multi-dose 6+ MO Unknown Completed [facility] Influenza Virus Vaccine Quad IM 3+ YRS Unknown Completed [facility] TDAP Unknown Completed [facility] Influenza Virus Vaccine Quad IM 3+ YRS Unknown Completed [facility] Influenza Virus Vaccine Quad IM 3+ YRS Unknown Completed [facility] Influenza Virus Vaccine Quad .5 mL IM 6+ MO (FLUZONE/FLULAVAL/F LUARIX) Unknown Completed [facility] Influenza Virus Vaccine Unknown Completed [facility] SARS-COV-2 COVID-19 MODERNA 12+ YRS VACCINE Unknown Completed [facility] SARS-COV-2 COVID-19 MODERNA 12+ YRS VACCINE Unknown Completed [facility] Influenza Virus Vaccine Quad IM, Preserv and ABX Free 6 MO-64 YRS (FLUCELVAX) Unknown Completed [facility] SARS-COV-2 COVID-19 MODERNA 0.25ML BOOSTER VACCINE Unknown Completed [facility] BEBTELOVIMAB Unknown Completed [facility] Influenza Virus Vaccine Quad IM, Preserv and ABX Free 6 MO-64 YRS (FLUCELVAX) Unknown Completed [facility] SARS-COV-2 COVID-19 VACCINE 12 YRS+, BIVALENT 0.5ML, IM, (MODERNA-BLUE TOP) Unknown [facility] Virus Vaccine Quad IM, Preserv and ABX Free 6 MO-64 YRS (FLUCELVAX) Unknown Completed [facility] Influenza Virus Vaccine Quad IM Multi-dose 6+ MO Unknown Completed [facility] Influenza Virus Vaccine Quad IM 3+ YRS Unknown Completed [facility] TDAP Unknown Completed [facility] Influenza Virus Vaccine Quad IM 3+ YRS Unknown Completed [facility] Influenza Virus Vaccine Quad IM 3+ YRS Unknown Completed [facility] Influenza Virus Vaccine Quad .5 mL IM 6+ MO (FLUZONE/FLULAVAL/F LUARIX) Unknown Completed [facility] Influenza Virus Vaccine Unknown Completed [facility] SARS-COV-2 COVID-19 MODERNA 12+ YRS VACCINE Unknown Completed [facility] SARS-COV-2 COVID-19 MODERNA 12+ YRS VACCINE Unknown Completed [facility] Influenza Virus Vaccine Quad IM, Preserv and ABX Free 6 MO-64 YRS (FLUCELVAX) Unknown Completed [facility] SARS-COV-2 COVID-19 MODERNA 0.25ML BOOSTER VACCINE Unknown Completed [facility] BEBTELOVIMAB Unknown Completed [facility] Influenza Virus Vaccine Quad IM, Preserv and ABX Free 6 MO-64 YRS (FLUCELVAX) Unknown Completed [facility] SARS-COV-2 COVID-19 VACCINE 12 YRS+, BIVALENT 0.5ML, IM, (MODERNA-BLUE TOP) Unknown [facility] Virus Vaccine Quad IM, Preserv and ABX Free 6 MO-64 YRS (FLUCELVAX) Unknown Completed [facility] Influenza Virus Vaccine Quad IM Multi-dose 6+ MO Unknown Completed [facility] Influenza Virus Vaccine Quad IM 3+ YRS Unknown Completed [facility] TDAP Unknown Completed [facility] Influenza Virus Vaccine Quad IM 3+ YRS Unknown Completed [facility] Influenza Virus Vaccine Quad IM 3+ YRS Unknown Completed [facility] Influenza Virus Vaccine Quad .5 mL IM 6+ MO (FLUZONE/FLULAVAL/F LUARIX) Unknown Completed [facility] Influenza Virus Vaccine Unknown Completed [facility] SARS-COV-2 COVID-19 MODERNA 12+ YRS VACCINE Unknown Completed [facility] SARS-COV-2 COVID-19 MODERNA 12+ YRS VACCINE Unknown Completed [facility] Influenza Virus Vaccine Quad IM, Preserv and ABX Free 6 MO-64 YRS (FLUCELVAX) Unknown Completed [facility] SARS-COV-2 COVID-19 MODERNA 0.25ML BOOSTER VACCINE Unknown Completed [facility] BEBTELOVIMAB Unknown Completed [facility] Influenza Virus Vaccine Quad IM, Preserv and ABX Free 6 MO-64 YRS (FLUCELVAX) Unknown Completed [facility] SARS-COV-2 COVID-19 VACCINE 12 YRS+, BIVALENT 0.5ML, IM, (MODERNA-BLUE TOP) Unknown [facility] Virus Vaccine Quad IM, Preserv and ABX Free 6 MO-64 YRS (FLUCELVAX) Unknown Completed [facility] Influenza Virus Vaccine Quad IM Multi-dose 6+ MO Unknown Completed [facility] Influenza Virus Vaccine Quad IM 3+ YRS Unknown Completed [facility] TDAP Unknown Completed [facility] Influenza Virus Vaccine Quad IM 3+ YRS Unknown Completed [facility] Influenza Virus Vaccine Quad IM 3+ YRS Unknown Completed [facility] Influenza Virus Vaccine Quad .5 mL IM 6+ MO (FLUZONE/FLULAVAL/F LUARIX) Unknown Completed [facility] Influenza Virus Vaccine Unknown Completed [facility] SARS-COV-2 COVID-19 MODERNA 12+ YRS VACCINE Unknown Completed [facility] SARS-COV-2 COVID-19 MODERNA 12+ YRS VACCINE Unknown Completed [facility] Influenza Virus Vaccine Quad IM, Preserv and ABX Free 6 MO-64 YRS (FLUCELVAX) Unknown Completed [facility] SARS-COV-2 COVID-19 MODERNA 0.25ML BOOSTER VACCINE Unknown Completed [facility] BEBTELOVIMAB Unknown Completed [facility] Influenza Virus Vaccine Quad IM, Preserv and ABX Free 6 MO-64 YRS (FLUCELVAX) Unknown Completed [facility] SARS-COV-2 COVID-19 VACCINE 12 YRS+, BIVALENT 0.5ML, IM, (MODERNA-BLUE TOP) Unknown [facility] Virus Vaccine Quad IM, Preserv and ABX Free 6 MO-64 YRS (FLUCELVAX) Unknown Completed [facility] Influenza Virus Vaccine Quad IM Multi-dose 6+ MO Unknown Completed [facility] Influenza Virus Vaccine Quad IM 3+ YRS Unknown Completed [facility] TDAP Unknown Completed [facility] Influenza Virus Vaccine Quad IM 3+ YRS Unknown Completed [facility] Influenza Virus Vaccine Quad IM 3+ YRS Unknown Completed [facility] Influenza Virus Vaccine Quad .5 mL IM 6+ MO (FLUZONE/FLULAVAL/F LUARIX) Unknown Completed [facility] Influenza Virus Vaccine Unknown Completed [facility] SARS-COV-2 COVID-19 MODERNA 12+ YRS VACCINE Unknown Completed [facility] SARS-COV-2 COVID-19 MODERNA 12+ YRS VACCINE Unknown Completed [facility] Influenza Virus Vaccine Quad IM, Preserv and ABX Free 6 MO-64 YRS (FLUCELVAX) Unknown Completed [facility] SARS-COV-2 COVID-19 MODERNA 0.25ML BOOSTER VACCINE Unknown Completed [facility] BEBTELOVIMAB Unknown Completed [facility] Influenza Virus Vaccine Quad IM, Preserv and ABX Free 6 MO-64 YRS (FLUCELVAX) Unknown Completed [facility] SARS-COV-2 COVID-19 VACCINE 12 YRS+, BIVALENT 0.5ML, IM, (MODERNA-BLUE TOP) Unknown [facility] Influ[facility] Virus Vaccine Quad IM, Preserv and ABX Free 6 MO-64 YRS (FLUCELVAX) Unknown Completed [facility] Influenza Virus Vaccine Quad IM Multi-dose 6+ MO Unknown Completed [facility] Influenza Virus Vaccine Quad IM 3+ YRS Unknown Completed [facility] TDAP Unknown Completed [facility] Influenza Virus Vaccine Quad IM 3+ YRS Unknown Completed [facility] Influenza Virus Vaccine Quad IM 3+ YRS Unknown Completed [facility] Influenza Virus Vaccine Quad .5 mL IM 6+ MO (FLUZONE/FLULAVAL/F LUARIX) Unknown Completed [facility] Influenza Virus Vaccine Unknown Completed [facility] SARS-COV-2 COVID-19 MODERNA 12+ YRS VACCINE Unknown Completed [facility] SARS-COV-2 COVID-19 MODERNA 12+ YRS VACCINE Unknown Completed [facility] Influenza Virus Vaccine Quad IM, Preserv and ABX Free 6 MO-64 YRS (FLUCELVAX) Unknown Completed [facility] SARS-COV-2 COVID-19 MODERNA 0.25ML BOOSTER VACCINE Unknown Completed [facility] BEBTELOVIMAB Unknown Completed [facility] Influenza Virus Vaccine Quad IM, Preserv and ABX Free 6 MO-64 YRS (FLUCELVAX) Unknown Completed [facility] SARS-COV-2 COVID-19 VACCINE 12 YRS+, BIVALENT 0.5ML, IM, (MODERNA-BLUE TOP) Unknown [facility] Virus Vaccine Quad IM, Preserv and ABX Free 6 MO-64 YRS (FLUCELVAX) Unknown Completed [facility] Influenza Virus Vaccine Quad IM Multi-dose 6+ MO Unknown Completed [facility] Influenza Virus Vaccine Quad IM 3+ YRS Unknown Completed [facility] TDAP Unknown Completed [facility] Influenza Virus Vaccine Quad IM 3+ YRS Unknown Completed [facility] Influenza Virus Vaccine Quad IM 3+ YRS Unknown Completed [facility] Influenza Virus Vaccine Quad .5 mL IM 6+ MO (FLUZONE/FLULAVAL/F LUARIX) Unknown Completed [facility] Influenza Virus Vaccine Unknown Completed [facility] SARS-COV-2 COVID-19 MODERNA 12+ YRS VACCINE Unknown Completed [facility] SARS-COV-2 COVID-19 MODERNA 12+ YRS VACCINE Unknown Completed [facility] Influenza Virus Vaccine Quad IM, Preserv and ABX Free 6 MO-64 YRS (FLUCELVAX) Unknown Completed [facility] SARS-COV-2 COVID-19 MODERNA 0.25ML BOOSTER VACCINE Unknown Completed [facility] BEBTELOVIMAB Unknown Completed [facility] Influenza Virus Vaccine Quad IM, Preserv and ABX Free 6 MO-64 YRS (FLUCELVAX) Unknown Completed [facility] SARS-COV-2 COVID-19 VACCINE 12 YRS+, BIVALENT 0.5ML, IM, (MODERNA-BLUE TOP) Unknown [facility] Influ[facility] Virus Vaccine Quad IM, Preserv and ABX Free 6 MO-64 YRS (FLUCELVAX) Unknown Completed [facility] Influenza Virus Vaccine Quad IM Multi-dose 6+ MO Unknown Completed [facility] Influenza Virus Vaccine Quad IM 3+ YRS Unknown Completed [facility] TDAP Unknown Completed [facility] Influenza Virus Vaccine Quad IM 3+ YRS Unknown Completed [facility] Influenza Virus Vaccine Quad IM 3+ YRS Unknown Completed [facility] Influenza Virus Vaccine Quad .5 mL IM 6+ MO (FLUZONE/FLULAVAL/F LUARIX) Unknown Completed [facility] Influenza Virus Vaccine Unknown Completed [facility] SARS-COV-2 COVID-19 MODERNA 12+ YRS VACCINE Unknown Completed [facility] SARS-COV-2 COVID-19 MODERNA 12+ YRS VACCINE Unknown Completed [facility] Influenza Virus Vaccine Quad IM, Preserv and ABX Free 6 MO-64 YRS (FLUCELVAX) Unknown Completed [facility] SARS-COV-2 COVID-19 MODERNA 0.25ML BOOSTER VACCINE Unknown Completed [facility] BEBTELOVIMAB Unknown Completed [facility] Influenza Virus Vaccine Quad IM, Preserv and ABX Free 6 MO-64 YRS (FLUCELVAX) Unknown Completed [facility] SARS-COV-2 COVID-19 VACCINE 12 YRS+, BIVALENT 0.5ML, IM, (MODERNA-BLUE TOP) Unknown Completed [facility] [facility] Vaccine Quad IM, Preserv and ABX Free 6 MO-64 YRS (FLUCELVAX) Unknown Completed [facility] Influenza Virus Vaccine Quad IM Multi-dose 6+ MO Unknown Completed [facility] Influenza Virus Vaccine Quad IM 3+ YRS Unknown Completed [facility] TDAP Unknown Completed [facility] Influenza Virus Vaccine Quad IM 3+ YRS Unknown Completed [facility] Influenza Virus Vaccine Quad IM 3+ YRS Unknown Completed [facility] Influenza Virus Vaccine Quad .5 mL IM 6+ MO (FLUZONE/FLULAVAL/F LUARIX) Unknown Completed [facility] Influenza Virus Vaccine Unknown Completed [facility] SARS-COV-2 COVID-19 MODERNA 12+ YRS VACCINE Unknown Completed [facility] SARS-COV-2 COVID-19 MODERNA 12+ YRS VACCINE Unknown Completed [facility] Influenza Virus Vaccine Quad IM, Preserv and ABX Free 6 MO-64 YRS (FLUCELVAX) Unknown Completed [facility] SARS-COV-2 COVID-19 MODERNA 0.25ML BOOSTER VACCINE Unknown Completed [facility] BEBTELOVIMAB Unknown Completed [facility] Influenza Virus Vaccine Quad IM, Preserv and ABX Free 6 MO-64 YRS (FLUCELVAX) Unknown Completed [facility] SARS-COV-2 COVID-19 VACCINE 12 YRS+, BIVALENT 0.5ML, IM, (MODERNA-BLUE TOP) Unknown [facility] Vaccine Quad IM, Preserv and ABX Free 6 MO-64 YRS (FLUCELVAX) Unknown Completed [facility] Influenza Virus Vaccine Quad IM Multi-dose 6+ MO Unknown Completed [facility] Influenza Virus Vaccine Quad IM 3+ YRS Unknown Completed [facility] TDAP Unknown Completed [facility] Influenza Virus Vaccine Quad IM 3+ YRS Unknown Completed [facility] Influenza Virus Vaccine Quad IM 3+ YRS Unknown Completed [facility] Influenza Virus Vaccine Quad .5 mL IM 6+ MO (FLUZONE/FLULAVAL/F LUARIX) Unknown Completed [facility] Influenza Virus Vaccine Unknown Completed [facility] SARS-COV-2 COVID-19 MODERNA 12+ YRS VACCINE Unknown Completed [facility] SARS-COV-2 COVID-19 MODERNA 12+ YRS VACCINE Unknown Completed [facility] Influenza Virus Vaccine Quad IM, Preserv and ABX Free 6 MO-64 YRS (FLUCELVAX) Unknown Completed [facility] SARS-COV-2 COVID-19 MODERNA 0.25ML BOOSTER VACCINE Unknown Completed [facility] BEBTELOVIMAB Unknown Completed [facility] Influenza Virus Vaccine Quad IM, Preserv and ABX Free 6 MO-64 YRS (FLUCELVAX) Unknown Completed [facility] SARS-COV-2 COVID-19 VACCINE 12 YRS+, BIVALENT 0.5ML, IM, (MODERNA-BLUE TOP) Unknown [facility] Vaccine Quad IM, Preserv and ABX Free 6 MO-64 YRS (FLUCELVAX) Unknown Completed [facility] Influenza Virus Vaccine Quad IM Multi-dose 6+ MO Unknown Completed [facility] Influenza Virus Vaccine Quad IM 3+ YRS Unknown Completed [facility] TDAP Unknown Completed [facility] Influenza Virus Vaccine Quad IM 3+ YRS Unknown Completed [facility] Influenza Virus Vaccine Quad IM 3+ YRS Unknown Completed [facility] Influenza Virus Vaccine Quad .5 mL IM 6+ MO (FLUZONE/FLULAVAL/F LUARIX) Unknown Completed [facility] Influenza Virus Vaccine Unknown Completed [facility] SARS-COV-2 COVID-19 MODERNA 12+ YRS VACCINE Unknown Completed [facility] SARS-COV-2 COVID-19 MODERNA 12+ YRS VACCINE Unknown Completed [facility] Influenza Virus Vaccine Quad IM, Preserv and ABX Free 6 MO-64 YRS (FLUCELVAX) Unknown Completed [facility] SARS-COV-2 COVID-19 MODERNA 0.25ML BOOSTER VACCINE Unknown Completed [facility] BEBTELOVIMAB Unknown Completed [facility] Influenza Virus Vaccine Quad IM, Preserv and ABX Free 6 MO-64 YRS (FLUCELVAX) Unknown Completed [facility] SARS-COV-2 COVID-19 VACCINE 12 YRS+, BIVALENT 0.5ML, IM, (MODERNA-BLUE TOP) Unknown [facility] Vaccine Quad IM, Preserv and ABX Free 6 MO-64 YRS (FLUCELVAX) Unknown Completed [facility] Influenza Virus Vaccine Quad IM Multi-dose 6+ MO Unknown Completed [facility] Influenza Virus Vaccine Quad IM 3+ YRS Unknown Completed [facility] TDAP Unknown Completed [facility] Influenza Virus Vaccine Quad IM 3+ YRS Unknown Completed [facility] Influenza Virus Vaccine Quad IM 3+ YRS Unknown Completed [facility] Influenza Virus Vaccine Quad .5 mL IM 6+ MO (FLUZONE/FLULAVAL/F LUARIX) Unknown Completed [facility] Influenza Virus Vaccine Unknown Completed [facility] SARS-COV-2 COVID-19 MODERNA 12+ YRS VACCINE Unknown Completed [facility] SARS-COV-2 COVID-19 MODERNA 12+ YRS VACCINE Unknown Completed [facility] Influenza Virus Vaccine Quad IM, Preserv and ABX Free 6 MO-64 YRS (FLUCELVAX) Unknown Completed [facility] SARS-COV-2 COVID-19 MODERNA 0.25ML BOOSTER VACCINE Unknown Completed [facility] BEBTELOVIMAB Unknown Completed [facility] Influenza Virus Vaccine Quad IM, Preserv and ABX Free 6 MO-64 YRS (FLUCELVAX) Unknown Completed [facility] SARS-COV-2 COVID-19 VACCINE 12 YRS+, BIVALENT 0.5ML, IM, (MODERNA-BLUE TOP) Unknown [facility] Vaccine Quad IM, Preserv and ABX Free 6 MO-64 YRS (FLUCELVAX) Unknown Completed [facility] Influenza Virus Vaccine Quad IM Multi-dose 6+ MO Unknown Completed [facility] Influenza Virus Vaccine Quad IM 3+ YRS Unknown Completed [facility] TDAP Unknown Completed [facility] Influenza Virus Vaccine Quad IM 3+ YRS Unknown Completed [facility] Influenza Virus Vaccine Quad IM 3+ YRS Unknown Completed [facility] Influenza Virus Vaccine Quad .5 mL IM 6+ MO (FLUZONE/FLULAVAL/F LUARIX) Unknown Completed [facility] Influenza Virus Vaccine Unknown Completed [facility] SARS-COV-2 COVID-19 MODERNA 12+ YRS VACCINE Unknown Completed [facility] SARS-COV-2 COVID-19 MODERNA 12+ YRS VACCINE Unknown Completed [facility] Influenza Virus Vaccine Quad IM, Preserv and ABX Free 6 MO-64 YRS (FLUCELVAX) Unknown Completed [facility] SARS-COV-2 COVID-19 MODERNA 0.25ML BOOSTER VACCINE Unknown Completed [facility] BEBTEL[facility]IM[facility] Unknown Completed [facility] Influenza Virus Vaccine Quad IM, Preserv and ABX Free 6 MO-64 YRS (FLUCELVAX) Unknown Completed [facility] SARS-COV-2 COVID-19 VACCINE 12 YRS+, BIVALENT 0.5ML, IM, (MODERNA-BLUE TOP) Unknown [facility] Vaccine Quad IM, Preserv and ABX Free 6 MO-64 YRS (FLUCELVAX) Unknown Completed [facility] Influenza Virus Vaccine Quad IM Multi-dose 6+ MO Unknown Completed [facility] Influenza Virus Vaccine Quad IM 3+ YRS Unknown Completed [facility] TDAP Unknown Completed [facility] Influenza Virus Vaccine Quad IM 3+ YRS Unknown Completed [facility] Influenza Virus Vaccine Quad IM 3+ YRS Unknown Completed [facility] Influenza Virus Vaccine Quad .5 mL IM 6+ MO (FLUZONE/FLULAVAL/F LUARIX) Unknown Completed [facility] Influenza Virus Vaccine Unknown Completed [facility] SARS-COV-2 COVID-19 MODERNA 12+ YRS VACCINE Unknown Completed [facility] SARS-COV-2 COVID-19 MODERNA 12+ YRS VACCINE Unknown Completed [facility] Influenza Virus Vaccine Quad IM, Preserv and ABX Free 6 MO-64 YRS (FLUCELVAX) Unknown Completed [facility] SARS-COV-2 COVID-19 MODERNA 0.25ML BOOSTER VACCINE Unknown Completed [facility] BEBTELOVIIAB Unknown Completed [facility] Influenza Virus Vaccine Quad IM, Preserv and ABX Free 6 MO-64 YRS (FLUCELVAX) Unknown Completed [facility] SARS-COV-2 COVID-19 VACCINE 12 YRS+, BIVALENT 0.5ML, IM, (MODERNA-BLUE TOP) Unknown [facility] Vaccine Quad IM, Preserv and ABX Free 6 MO-64 YRS (FLUCELVAX) Unknown Completed [facility] Influenza Virus Vaccine Quad IM Multi-dose 6+ MO Unknown Completed [facility] Influenza Virus Vaccine Quad IM 3+ YRS Unknown Completed [facility] TDAP Unknown Completed [facility] Influenza Virus Vaccine Quad IM 3+ YRS Unknown Completed [facility] Influenza Virus Vaccine Quad IM 3+ YRS Unknown Completed [facility] Influenza Virus Vaccine Quad .5 mL IM 6+ MO (FLUZONE/FLULAVAL/F LUARIX) Unknown Completed [facility] Influenza Virus Vaccine Unknown Completed [facility] SARS-COV-2 COVID-19 MODERNA 12+ YRS VACCINE Unknown Completed [facility] SARS-COV-2 COVID-19 MODERNA 12+ YRS VACCINE Unknown Completed [facility] Influenza Virus Vaccine Quad IM, Preserv and ABX Free 6 MO-64 YRS (FLUCELVAX) Unknown Completed [facility] SARS-COV-2 COVID-19 MODERNA 0.25ML BOOSTER VACCINE Unknown Completed [facility] BEBTEL[facility]IM[facility] Unknown Completed [facility] Influenza Virus Vaccine Quad IM, Preserv and ABX Free 6 MO-64 YRS (FLUCELVAX) Unknown Completed [facility] SARS-COV-2 COVID-19 VACCINE 12 YRS+, BIVALENT 0.5ML, IM, (MODERNA-BLUE TOP) Unknown [facility] Vaccine Quad IM, Preserv and ABX Free 6 MO-64 YRS (FLUCELVAX) Unknown Completed [facility] Influenza Virus Vaccine Quad IM Multi-dose 6+ MO Unknown Completed [facility] Influenza Virus Vaccine Quad IM 3+ YRS Unknown Completed [facility] TDAP Unknown Completed [facility] Influenza Virus Vaccine Quad IM 3+ YRS Unknown Completed [facility] Influenza Virus Vaccine Quad IM 3+ YRS Unknown Completed [facility] Influenza Virus Vaccine Quad .5 mL IM 6+ MO (FLUZONE/FLULAVAL/F LUARIX) Unknown Completed [facility] Influenza Virus Vaccine Unknown Completed [facility] SARS-COV-2 COVID-19 MODERNA 12+ YRS VACCINE Unknown Completed [facility] SARS-COV-2 COVID-19 MODERNA 12+ YRS VACCINE Unknown Completed [facility] Influenza Virus Vaccine Quad IM, Preserv and ABX Free 6 MO-64 YRS (FLUCELVAX) Unknown Completed [facility] SARS-COV-2 COVID-19 MODERNA 0.25ML BOOSTER VACCINE Unknown Completed [facility] BEBTELOVIMAB Unknown Completed [facility] Influenza Virus Vaccine Quad IM, Preserv and ABX Free 6 MO-64 YRS (FLUCELVAX) Unknown Completed [facility] SARS-COV-2 COVID-19 VACCINE 12 YRS+, BIVALENT 0.5ML, IM, (MODERNA-BLUE TOP) Unknown [facility] Vaccine Quad IM, Preserv and ABX Free 6 MO-64 YRS (FLUCELVAX) Unknown Completed [facility] Influenza Virus Vaccine Quad IM Multi-dose 6+ MO Unknown Completed [facility] Influenza Virus Vaccine Quad IM 3+ YRS Unknown Completed [facility] TDAP Unknown Completed [facility] Influenza Virus Vaccine Quad IM 3+ YRS Unknown Completed [facility] Influenza Virus Vaccine Quad IM 3+ YRS Unknown Completed [facility] Influenza Virus Vaccine Quad .5 mL IM 6+ MO (FLUZONE/FLULAVAL/F LUARIX) Unknown Completed [facility] Influenza Virus Vaccine Unknown Completed [facility] SARS-COV-2 COVID-19 MODERNA 12+ YRS VACCINE Unknown Completed [facility] SARS-COV-2 COVID-19 MODERNA 12+ YRS VACCINE Unknown Completed [facility] Influenza Virus Vaccine Quad IM, Preserv and ABX Free 6 MO-64 YRS (FLUCELVAX) Unknown Completed [facility] SARS-COV-2 COVID-19 MODERNA 0.25ML BOOSTER VACCINE Unknown Completed [facility] BEBTELOVIMAB Unknown Completed [facility] Influenza Virus Vaccine Quad IM, Preserv and ABX Free 6 MO-64 YRS (FLUCELVAX) Unknown Completed [facility] SARS-COV-2 COVID-19 VACCINE 12 YRS+, BIVALENT 0.5ML, IM, (MODERNA-BLUE TOP) Unknown [facility] Virus Vaccine Quad IM, Preserv and ABX Free 6 MO-64 YRS (FLUCELVAX) Unknown Completed [facility] Influenza Virus Vaccine Quad IM Multi-dose 6+ MO Unknown Completed [facility] Influenza Virus Vaccine Quad IM 3+ YRS Unknown Completed [facility] TDAP Unknown Completed [facility] Influenza Virus Vaccine Quad IM 3+ YRS Unknown Completed [facility] Influenza Virus Vaccine Quad IM 3+ YRS Unknown Completed [facility] Influenza Virus Vaccine Quad .5 mL IM 6+ MO (FLUZONE/FLULAVAL/F LUARIX) Unknown Completed [facility] Influenza Virus Vaccine Unknown Completed [facility] SARS-COV-2 COVID-19 MODERNA 12+ YRS VACCINE Unknown Completed [facility] SARS-COV-2 COVID-19 MODERNA 12+ YRS VACCINE Unknown Completed [facility] Influenza Virus Vaccine Quad IM, Preserv and ABX Free 6 MO-64 YRS (FLUCELVAX) Unknown Completed [facility] SARS-COV-2 COVID-19 MODERNA 0.25ML BOOSTER VACCINE Unknown Completed [facility] BEBTEL[facility]IM[facility] Unknown Completed [facility] Influenza Virus Vaccine Quad IM, Preserv and ABX Free 6 MO-64 YRS (FLUCELVAX) Unknown Completed [facility] SARS-COV-2 COVID-19 VACCINE 12 YRS+, BIVALENT 0.5ML, IM, (MODERNA-BLUE TOP) Unknown [facility] Virus Vaccine Quad IM, Preserv and ABX Free 6 MO-64 YRS (FLUCELVAX) Unknown Completed [facility] Influenza Virus Vaccine Quad IM Multi-dose 6+ MO Unknown Completed [facility] Influenza Virus Vaccine Quad IM 3+ YRS Unknown Completed [facility] TDAP Unknown Completed [facility] Influenza Virus Vaccine Quad IM 3+ YRS Unknown Completed [facility] Influenza Virus Vaccine Quad IM 3+ YRS Unknown Completed [facility] Influenza Virus Vaccine Quad .5 mL IM 6+ MO (FLUZONE/FLULAVAL/F LUARIX) Unknown Completed [facility] Influenza Virus Vaccine Unknown Completed [facility] SARS-COV-2 COVID-19 MODERNA 12+ YRS VACCINE Unknown Completed [facility] SARS-COV-2 COVID-19 MODERNA 12+ YRS VACCINE Unknown Completed [facility] Influenza Virus Vaccine Quad IM, Preserv and ABX Free 6 MO-64 YRS (FLUCELVAX) Unknown Completed [facility] SARS-COV-2 COVID-19 MODERNA 0.25ML BOOSTER VACCINE Unknown Completed [facility] BEBTELOVIMAB Unknown Completed [facility] Influenza Virus Vaccine Quad IM, Preserv and ABX Free 6 MO-64 YRS (FLUCELVAX) Unknown Completed [facility] SARS-COV-2 COVID-19 VACCINE 12 YRS+, BIVALENT 0.5ML, IM, (MODERNA-BLUE TOP) Unknown [facility] Virus Vaccine Quad IM, Preserv and ABX Free 6 MO-64 YRS (FLUCELVAX) Unknown Completed [facility] Influenza Virus Vaccine Quad IM Multi-dose 6+ MO Unknown Completed [facility] Influenza Virus Vaccine Quad IM 3+ YRS Unknown Completed [facility] TDAP Unknown Completed [facility] Influenza Virus Vaccine Quad IM 3+ YRS Unknown Completed [facility] Influenza Virus Vaccine Quad IM 3+ YRS Unknown Completed [facility] Influenza Virus Vaccine Quad .5 mL IM 6+ MO (FLUZONE/FLULAVAL/F LUARIX) Unknown Completed [facility] Influenza Virus Vaccine Unknown Completed [facility] SARS-COV-2 COVID-19 MODERNA 12+ YRS VACCINE Unknown Completed [facility] SARS-COV-2 COVID-19 MODERNA 12+ YRS VACCINE Unknown Completed [facility] Influenza Virus Vaccine Quad IM, Preserv and ABX Free 6 MO-64 YRS (FLUCELVAX) Unknown Completed [facility] SARS-COV-2 COVID-19 MODERNA 0.25ML BOOSTER VACCINE Unknown Completed [facility] BEBTELOVIMAB Unknown Completed [facility] Influenza Virus Vaccine Quad IM, Preserv and ABX Free 6 MO-64 YRS (FLUCELVAX) Unknown Completed [facility] SARS-COV-2 COVID-19 VACCINE 12 YRS+, BIVALENT 0.5ML, IM, (MODERNA-BLUE TOP) Unknown [facility] Virus Vaccine Quad IM, Preserv and ABX Free 6 MO-64 YRS (FLUCELVAX) Unknown Completed [facility] Influenza Virus Vaccine Quad IM Multi-dose 6+ MO Unknown Completed [facility] Influenza Virus Vaccine Quad IM 3+ YRS Unknown Completed [facility] TDAP Unknown Completed [facility] Influenza Virus Vaccine Quad IM 3+ YRS Unknown Completed [facility] Influenza Virus Vaccine Quad IM 3+ YRS Unknown Completed [facility] Influenza Virus Vaccine Quad .5 mL IM 6+ MO (FLUZONE/FLULAVAL/F LUARIX) Unknown Completed [facility] Influenza Virus Vaccine Unknown Completed [facility] SARS-COV-2 COVID-19 MODERNA 12+ YRS VACCINE Unknown Completed [facility] SARS-COV-2 COVID-19 MODERNA 12+ YRS VACCINE Unknown Completed [facility] Influenza Virus Vaccine Quad IM, Preserv and ABX Free 6 MO-64 YRS (FLUCELVAX) Unknown Completed [facility] SARS-COV-2 COVID-19 MODERNA 0.25ML BOOSTER VACCINE Unknown Completed [facility] BEBTEL[facility]IMAB Unknown Completed [facility] Influenza Virus Vaccine Quad IM, Preserv and ABX Free 6 MO-64 YRS (FLUCELVAX) Unknown Completed [facility] SARS-COV-2 COVID-19 VACCINE 12 YRS+, BIVALENT 0.5ML, IM, (MODERNA-BLUE TOP) Unknown [facility] Virus Vaccine Quad IM, Preserv and ABX Free 6 MO-64 YRS (FLUCELVAX) Unknown Completed [facility] Influenza Virus Vaccine Quad IM Multi-dose 6+ MO Unknown Completed [facility] Influenza Virus Vaccine Quad IM 3+ YRS Unknown Completed [facility] TDAP Unknown Completed [facility] Influenza Virus Vaccine Quad IM 3+ YRS Unknown Completed [facility] Influenza Virus Vaccine Quad IM 3+ YRS Unknown Completed [facility] Influenza Virus Vaccine Quad .5 mL IM 6+ MO (FLUZONE/FLULAVAL/F LUARIX) Unknown Completed [facility] Influenza Virus Vaccine Unknown Completed [facility] SARS-COV-2 COVID-19 MODERNA 12+ YRS VACCINE Unknown Completed [facility] SARS-COV-2 COVID-19 MODERNA 12+ YRS VACCINE Unknown Completed [facility] Influenza Virus Vaccine Quad IM, Preserv and ABX Free 6 MO-64 YRS (FLUCELVAX) Unknown Completed [facility] SARS-COV-2 COVID-19 MODERNA 0.25ML BOOSTER VACCINE Unknown Completed [facility] BEBTEL[facility]IM[facility] Unknown Completed [facility] Influenza Virus Vaccine Quad IM, Preserv and ABX Free 6 MO-64 YRS (FLUCELVAX) Unknown Completed [facility] SARS-COV-2 COVID-19 VACCINE 12 YRS+, BIVALENT 0.5ML, IM, (MODERNA-BLUE TOP) Unknown [facility] Virus Vaccine Quad IM, Preserv and ABX Free 6 MO-64 YRS (FLUCELVAX) Unknown Completed [facility] Influenza Virus Vaccine Quad IM Multi-dose 6+ MO Unknown Completed [facility] Influenza Virus Vaccine Quad IM 3+ YRS Unknown Completed [facility] TDAP Unknown Completed [facility] Influenza Virus Vaccine Quad IM 3+ YRS Unknown Completed [facility] Influenza Virus Vaccine Quad IM 3+ YRS Unknown Completed [facility] Influenza Virus Vaccine Quad .5 mL IM 6+ MO (FLUZONE/FLULAVAL/F LUARIX) Unknown Completed [facility] Influenza Virus Vaccine Unknown Completed [facility] SARS-COV-2 COVID-19 MODERNA 12+ YRS VACCINE Unknown Completed [facility] SARS-COV-2 COVID-19 MODERNA 12+ YRS VACCINE Unknown Completed [facility] Influenza Virus Vaccine Quad IM, Preserv and ABX Free 6 MO-64 YRS (FLUCELVAX) Unknown Completed [facility] SARS-COV-2 COVID-19 MODERNA 0.25ML BOOSTER VACCINE Unknown Completed [facility] BEBTELOVIMAB Unknown Completed [facility] Influenza Virus Vaccine Quad IM, Preserv and ABX Free 6 MO-64 YRS (FLUCELVAX) Unknown Completed [facility] SARS-COV-2 COVID-19 VACCINE 12 YRS+, BIVALENT 0.5ML, IM, (MODERNA-BLUE TOP) Unknown [facility] Virus Vaccine Quad IM, Preserv and ABX Free 6 MO-64 YRS (FLUCELVAX) Unknown Completed [facility] Influenza Virus Vaccine Quad IM Multi-dose 6+ MO Unknown Completed [facility] Influenza Virus Vaccine Quad IM 3+ YRS Unknown Completed [facility] TDAP Unknown Completed [facility] Influenza Virus Vaccine Quad IM 3+ YRS Unknown Completed [facility] Influenza Virus Vaccine Quad IM 3+ YRS Unknown Completed [facility] Influenza Virus Vaccine Quad .5 mL IM 6+ MO (FLUZONE/FLULAVAL/F LUARIX) Unknown Completed [facility] Influenza Virus Vaccine Unknown Completed [facility] SARS-COV-2 COVID-19 MODERNA 12+ YRS VACCINE Unknown Completed [facility] SARS-COV-2 COVID-19 MODERNA 12+ YRS VACCINE Unknown Completed [facility] Influenza Virus Vaccine Quad IM, Preserv and ABX Free 6 MO-64 YRS (FLUCELVAX) Unknown Completed [facility] SARS-COV-2 COVID-19 MODERNA 0.25ML BOOSTER VACCINE Unknown Completed [facility] BE[facility]ELOVIMAB Unknown Completed [facility] Influenza Virus Vaccine Quad IM, Preserv and ABX Free 6 MO-64 YRS (FLUCELVAX) Unknown Completed [facility] SARS-COV-2 COVID-19 VACCINE 12 YRS+, BIVALENT 0.5ML, IM, (MODERNA-BLUE TOP) Unknown [facility] Virus Vaccine Quad IM, Preserv and ABX Free 6 MO-64 YRS (FLUCELVAX) Unknown Completed [facility] Influenza Virus Vaccine Quad IM Multi-dose 6+ MO Unknown Completed [facility] Influenza Virus Vaccine Quad IM 3+ YRS Unknown Completed [facility] TDAP Unknown Completed [facility] Influenza Virus Vaccine Quad IM 3+ YRS Unknown Completed [facility] Influenza Virus Vaccine Quad IM 3+ YRS Unknown Completed [facility] Influenza Virus Vaccine Quad .5 mL IM 6+ MO (FLUZONE/FLULAVAL/F LUARIX) Unknown Completed [facility] Influenza Virus Vaccine Unknown Completed [facility] SARS-COV-2 COVID-19 MODERNA 12+ YRS VACCINE Unknown Completed [facility] SARS-COV-2 COVID-19 MODERNA 12+ YRS VACCINE Unknown Completed [facility] Influenza Virus Vaccine Quad IM, Preserv and ABX Free 6 MO-64 YRS (FLUCELVAX) Unknown Completed [facility] SARS-COV-2 COVID-19 MODERNA 0.25ML BOOSTER VACCINE Unknown Completed [facility] BEBTELOVIMAB Unknown Completed [facility] Influenza Virus Vaccine Quad IM, Preserv and ABX Free 6 MO-64 YRS (FLUCELVAX) Unknown Completed [facility] SARS-COV-2 COVID-19 VACCINE 12 YRS+, BIVALENT 0.5ML, IM, (MODERNA-BLUE TOP) Unknown [facility] Influ[facility] Virus Vaccine Quad IM, Preserv and ABX Free 6 MO-64 YRS (FLUCELVAX) Unknown Completed [facility] Influenza Virus Vaccine Quad IM Multi-dose 6+ MO Unknown Completed [facility] Influenza Virus Vaccine Quad IM 3+ YRS Unknown Completed [facility] TDAP Unknown Completed [facility] Influenza Virus Vaccine Quad IM 3+ YRS Unknown Completed [facility] Influenza Virus Vaccine Quad IM 3+ YRS Unknown Completed [facility] Influenza Virus Vaccine Quad .5 mL IM 6+ MO (FLUZONE/FLULAVAL/F LUARIX) Unknown Completed [facility] Influenza Virus Vaccine Unknown Completed [facility] SARS-COV-2 COVID-19 MODERNA 12+ YRS VACCINE Unknown Completed [facility] SARS-COV-2 COVID-19 MODERNA 12+ YRS VACCINE Unknown Completed [facility] Influenza Virus Vaccine Quad IM, Preserv and ABX Free 6 MO-64 YRS (FLUCELVAX) Unknown Completed [facility] SARS-COV-2 COVID-19 MODERNA 0.25ML BOOSTER VACCINE Unknown Completed [facility] BEBTELOVIMAB Unknown Completed [facility] Influenza Virus Vaccine Quad IM, Preserv and ABX Free 6 MO-64 YRS (FLUCELVAX) Unknown Completed [facility] SARS-COV-2 COVID-19 VACCINE 12 YRS+, BIVALENT 0.5ML, IM, (MODERNA-BLUE TOP) Unknown [facility]pleted [facility] Influenza Virus Vaccine Quad IM, Preserv and ABX Free 6 MO-64 YRS (FLUCELVAX) Unknown Completed [facility] Influenza Virus Vaccine Quad IM Multi-dose 6+ MO Unknown Completed [facility] Influenza Virus Vaccine Quad IM 3+ YRS Unknown Completed [facility] TDAP Unknown Completed [facility] Influenza Virus Vaccine Quad IM 3+ YRS Unknown Completed [facility] Influenza Virus Vaccine Quad IM 3+ YRS Unknown Completed [facility] Influenza Virus Vaccine Quad .5 mL IM 6+ MO (FLUZONE/FLULAVAL/F LUARIX) Unknown Completed [facility] Influenza Virus Vaccine Unknown Completed [facility] SARS-COV-2 COVID-19 MODERNA 12+ YRS VACCINE Unknown Completed [facility] SARS-COV-2 COVID-19 MODERNA 12+ YRS VACCINE Unknown Completed [facility] Influenza Virus Vaccine Quad IM, Preserv and ABX Free 6 MO-64 YRS (FLUCELVAX) Unknown Completed [facility] SARS-COV-2 COVID-19 MODERNA 0.25ML BOOSTER VACCINE Unknown Completed [facility] BEBTELOVIMAB Unknown Completed [facility] Influenza Virus Vaccine Quad IM, Preserv and ABX Free 6 MO-64 YRS (FLUCELVAX) Unknown Completed [facility] SARS-COV-2 COVID-19 VACCINE 12 YRS+, BIVALENT 0.5ML, IM, (MODERNA-BLUE TOP) Unknown Completed [facility] Influenza Virus Vaccine Quad IM, Preserv and ABX Free 6 MO-64 YRS (FLUCELVAX) Unknown Completed [facility] Influenza Virus Vaccine Quad IM Multi-dose 6+ MO Unknown Completed [facility] Influenza Virus Vaccine Quad IM 3+ YRS Unknown Completed [facility] TDAP Unknown Completed [facility] Influenza Virus Vaccine Quad IM 3+ YRS Unknown Completed [facility] Influenza Virus Vaccine Quad IM 3+ YRS Unknown Completed [facility] Influenza Virus Vaccine Quad .5 mL IM 6+ MO (FLUZONE/FLULAVAL/F LUARIX) Unknown Completed [facility] Influenza Virus Vaccine Unknown Completed [facility] SARS-COV-2 COVID-19 MODERNA 12+ YRS VACCINE Unknown Completed [facility] SARS-COV-2 COVID-19 MODERNA 12+ YRS VACCINE Unknown Completed [facility] Influenza Virus Vaccine Quad IM, Preserv and ABX Free 6 MO-64 YRS (FLUCELVAX) Unknown Completed [facility] SARS-COV-2 COVID-19 MODERNA 0.25ML BOOSTER VACCINE Unknown Completed [facility] BEBTELOVIMAB Unknown Completed [facility] Influenza Virus Vaccine Quad IM, Preserv and ABX Free 6 MO-64 YRS (FLUCELVAX) Unknown Completed [facility] SARS-COV-2 COVID-19 VACCINE 12 YRS+, BIVALENT 0.5ML, IM, (MODERNA-BLUE TOP) Unknown Completed [facility] Influenza Virus Vaccine Quad IM, Preserv and ABX Free 6 MO-64 YRS (FLUCELVAX) Unknown Completed [facility] Vital Signs Vital Name Observation Time Observation Value Comments S ource Systolic blood pressure 2023-06-19 02:18:00 108 mm[Hg] [facility] Diastolic blood pressure 2023-06-19 02:18:00 77 mm[Hg] [facility] Heart rate 2023-06-19 02:18:00 79 /min [facility] Body temperature 2023-06-19 02:18:00 36.83 [facility] Respiratory rate 2023-06-19 02:18:00 18 /min [facility] Oxygen saturation in Arterial blood by Pulse oximetry 2023-06-19 02:18:00 97 /min [facility] Body height 2023-06-18 23:56:00 160 cm [facility] Body weight 2023-06-18 23:56:00 97.523 kg [facility] BMI 2023-06-18 23:56:00 38.09 kg/m2 [facility] Systolic blood pressure 2023-04-04 15:13:00 122 mm[Hg] [facility] Diastolic blood pressure 2023-04-04 15:13:00 80 mm[Hg] [facility] Heart rate 2023-04-04 15:13:00 87 /min [facility] Respiratory rate 2023-04-04 15:13:00 18 /min [facility] Body height 2023-04-04 15:13:00 160 cm [facility] Body weight 2023-04-04 15:13:00 100.88 kg Univ [facility] BMI 2023-04-04 15:13:00 39.40 kg/m2 [facility] Oxygen saturation in Arterial blood by Pulse oximetry 2023-04-04 15:13:00 95 /min [facility] Systolic blood pressure 2023-04-01 20:45:00 111 mm[Hg] [facility] Diastolic blood pressure 2023-04-01 20:45:00 74 mm[Hg] [facility] Heart rate 2023-04-01 20:45:00 88 /min [facility] Respiratory rate 2023-04-01 20:45:00 18 /min [facility] Body height 2023-04-01 20:45:00 160 cm [facility] Body weight 2023-04-01 20:45:00 100.699 kg [facility] BMI 2023-04-01 20:45:00 39.33 kg/m2 [facility] Systolic blood pressure 2023-03-25 17:04:00 112 mm[Hg] [facility] Diastolic blood pressure 2023-03-25 17:04:00 67 mm[Hg] [facility] Heart rate 2023-03-25 17:04:00 85 /min [facility] Respiratory rate 2023-03-25 17:04:00 14 /min [facility] Oxygen saturation in Arterial blood by Pulse oximetry 2023-03-25 17:04:00 94 /min [facility] Body temperature 2023-03-25 14:42:00 36.39 [facility] Body height 2023-03-21 22:00:00 160 cm [facility] Body weight 2023-03-21 22:00:00 99.338 kg [facility] BMI 2023-03-21 22:00:00 38.79 kg/m2 [facility] Systolic blood pressure 2023-03-25 14:42:00 112 mm[Hg] [facility] Diastolic blood pressure 2023-03-25 14:42:00 68 mm[Hg] [facility] Heart rate 2023-03-25 14:42:00 100 [facility] Body temperature 2023-03-25 14:42:00 36.39 [facility] Respiratory rate 2023-03-25 14:42:00 18 /min [facility] Oxygen saturation in Arterial blood by Pulse oximetry 2023-03-25 14:42:00 98 /min [facility] Body height 2023-03-21 22:00:00 160 cm [facility] Body weight 2023-03-21 22:00:00 99.338 kg [facility] BMI 2023-03-21 22:00:00 38.79 kg/m2 [facility] Systolic blood pressure 2023-03-03 19:10:00 115 mm[Hg] [facility] Diastolic blood pressure 2023-03-03 19:10:00 73 mm[Hg] [facility] Heart rate 2023-03-03 19:10:00 73 /min [facility] Body temperature 2023-03-03 19:10:00 36.28 [facility] Respiratory rate 2023-03-03 19:10:00 18 /min [facility] Body height 2023-03-03 19:10:00 160 cm [facility] Body weight 2023-03-03 19:10:00 99.791 kg [facility] BMI 2023-03-03 19:10:00 38.97 kg/m2 [facility] Oxygen saturation in Arterial blood by Pulse oximetry 2023-03-03 19:10:00 99 /min [facility] Systolic blood pressure 2023-02-28 19:10:00 96 mm[Hg] [facility] Diastolic blood pressure 2023-02-28 19:10:00 68 mm[Hg] [facility] Heart rate 2023-02-28 19:10:00 90 /min [facility] Body temperature 2023-02-28 19:10:00 36.83 [facility] Respiratory rate 2023-02-28 19:10:00 17 /min [facility] Body height 2023-02-28 19:10:00 165.1 cm Univ [facility] Body weight 2023-02-28 19:10:00 99.882 kg [facility] BMI 2023-02-28 19:10:00 36.64 kg/m2 [facility] Systolic blood pressure 2023-02-25 21:40:00 123 mm[Hg] [facility] Diastolic blood pressure 2023-02-25 21:40:00 85 mm[Hg] [facility] Heart rate 2023-02-25 21:40:00 78 /min [facility] Respiratory rate 2023-02-25 21:40:00 18 /min [facility] Body height 2023-02-25 21:40:00 160 cm [facility] Body weight 2023-02-25 21:40:00 101.696 kg [facility] BMI 2023-02-25 21:40:00 39.72 kg/m2 [facility] Oxygen saturation in Arterial blood by Pulse oximetry 2023-02-25 21:40:00 98 /min [facility] Systolic blood pressure 2023-02-14 19:10:00 124 mm[Hg] [facility] Diastolic blood pressure 2023-02-14 19:10:00 74 mm[Hg] [facility] Body temperature 2023-02-14 19:10:00 36.56 [facility] Respiratory rate 2023-02-14 19:10:00 18 /min [facility] Body height 2023-02-14 19:10:00 160 cm [facility] Body weight 2023-02-14 19:10:00 101.334 kg [facility] BMI 2023-02-14 19:10:00 39.57 kg/m2 [facility] Oxygen saturation in Arterial blood by Pulse oximetry 2023-02-14 19:10:00 100 /min [facility] Systolic blood pressure 2023-02-14 18:38:00 104 mm[Hg] [facility] Diastolic blood pressure 2023-02-14 18:38:00 74 mm[Hg] [facility] Heart rate 2023-02-14 18:38:00 86 /min [facility] Body temperature 2023-02-14 18:38:00 36.56 [facility] Respiratory rate 2023-02-14 18:38:00 18 /min [facility] Body height 2023-02-14 18:38:00 160 cm [facility] Body weight 2023-02-14 18:38:00 101.334 kg [facility] BMI 2023-02-14 18:38:00 39.57 kg/m2 [facility] Oxygen saturation in Arterial blood by Pulse oximetry 2023-02-14 18:38:00 100 /min [facility] Systolic blood pressure 2023-02-11 00:25:43 119 mm[Hg] [facility] Diastolic blood pressure 2023-02-11 00:25:43 74 mm[Hg] [facility] Heart rate 2023-02-11 00:25:43 89 /min [facility] Body temperature 2023-02-11 00:25:43 36.83 [facility] Respiratory rate 2023-02-11 00:25:43 19 /min [facility] Oxygen saturation in Arterial blood by Pulse oximetry 2023-02-11 00:25:43 97 /min [facility] Body height 2023-02-10 20:19:00 160 cm [facility] Body weight 2023-02-10 20:19:00 102.059 kg [facility] BMI 2023-02-10 20:19:00 39.86 kg/m2 [facility] Systolic blood pressure 2022-12-29 14:30:00 102 mm[Hg] [facility] Diastolic blood pressure 2022-12-29 14:30:00 70 mm[Hg] [facility] Heart rate 2022-12-29 14:30:00 83 /min [facility] Respiratory rate 2022-12-29 14:30:00 17 /min [facility] Body weight 2022-12-29 14:30:00 100.699 kg [facility] BMI 2022-12-29 14:30:00 39.33 kg/m2 [facility] Oxygen saturation in Arterial blood by Pulse oximetry 2022-12-29 14:30:00 96 /min [facility] Systolic blood pressure 2022-11-05 16:25:00 104 mm[Hg] [facility] Diastolic blood pressure 2022-11-05 16:25:00 71 mm[Hg] [facility] Heart rate 2022-11-05 16:25:00 111 /min [facility] Body temperature 2022-11-05 16:25:00 37.44 [facility] Respiratory rate 2022-11-05 16:25:00 18 /min [facility] Body weight 2022-11-05 16:25:00 97.977 kg [facility] BMI 2022-11-05 16:25:00 38.26 kg/m2 [facility] Oxygen saturation in Arterial blood by Pulse oximetry 2022-11-05 16:25:00 95 /min [facility] Systolic blood pressure 2022-03-31 15:16:00 110 mm[Hg] [facility] Diastolic blood pressure 2022-03-31 15:16:00 76 mm[Hg] [facility] Heart rate 2022-03-31 15:16:00 80 /min [facility] Body temperature 2022-03-31 15:16:00 36.28 [facility] Respiratory rate 2022-03-31 15:16:00 18 /min [facility] Body height 2022-03-31 15:16:00 160 cm [facility] Body weight 2022-03-31 15:16:00 97.523 kg [facility] BMI 2022-03-31 15:16:00 38.09 kg/m2 [facility] Oxygen saturation in Arterial blood by Pulse oximetry 2022-03-31 15:16:00 98 /min [facility] Systolic blood pressure 2022-02-25 15:32:00 113 mm[Hg] [facility] Diastolic blood pressure 2022-02-25 15:32:00 76 mm[Hg] [facility] Heart rate 2022-02-25 15:32:00 80 /min [facility] Body temperature 2022-02-25 15:32:00 36.72 [facility] Respiratory rate 2022-02-25 15:32:00 18 /min [facility] Body height 2022-02-25 15:32:00 160 cm [facility] Body weight 2022-02-25 15:32:00 101.334 kg [facility] BMI 2022-02-25 15:32:00 39.57 kg/m2 [facility] Systolic blood pressure 2022-02-08 14:32:00 104 mm[Hg] [facility] Diastolic blood pressure 2022-02-08 14:32:00 72 mm[Hg] [facility] Heart rate 2022-02-08 14:32:00 80 /min [facility] Body temperature 2022-02-08 14:32:00 36.17 [facility] Respiratory rate 2022-02-08 14:32:00 18 /min [facility] Body height 2022-02-08 14:32:00 160 cm [facility] Body weight 2022-02-08 14:32:00 101.56 kg [facility] BMI 2022-02-08 14:32:00 39.66 kg/m2 [facility] Oxygen saturation in Arterial blood by Pulse oximetry 2022-02-08 14:32:00 98 /min [facility] Systolic blood pressure 2022-02-08 14:34:00 104 mm[Hg] [facility] Diastolic blood pressure 2022-02-08 14:34:00 72 mm[Hg] [facility] Heart rate 2022-02-08 14:34:00 80 /min [facility] Body temperature 2022-02-08 14:34:00 36.17 [facility] Respiratory rate 2022-02-08 14:34:00 18 /min [facility] Body height 2022-02-08 14:34:00 160 cm [facility] Body weight 2022-02-08 14:34:00 101.56 kg [facility] BMI 2022-02-08 14:34:00 39.66 kg/m2 [facility] Oxygen saturation in Arterial blood by Pulse oximetry 2022-02-08 14:34:00 98 /min [facility] Systolic blood pressure 2021-12-23 14:08:00 105 mm[Hg] [facility] Diastolic blood pressure 2021-12-23 14:08:00 75 mm[Hg] [facility] Heart rate 2021-12-23 14:08:00 90 /min [facility] Body height 2021-12-23 14:08:00 160 cm [facility] Body weight 2021-12-23 14:08:00 103.964 kg [facility] BMI 2021-12-23 14:08:00 40.60 kg/m2 [facility] Oxygen saturation in Arterial blood by Pulse oximetry 2021-12-23 14:08:00 98 /min [facility] Systolic blood pressure 2021-08-11 21:35:00 99 mm[Hg] [facility] Diastolic blood pressure 2021-08-11 21:35:00 54 mm[Hg] [facility] Heart rate 2021-08-11 21:35:00 81 /min [facility] Body temperature 2021-08-11 21:35:00 36.44 [facility] Respiratory rate 2021-08-11 21:35:00 18 /min [facility] Oxygen saturation in Arterial blood by Pulse oximetry 2021-08-11 21:35:00 97 /min [facility] Body height 2021-08-11 20:59:00 160 cm [facility] Body weight 2021-08-11 20:59:00 99.791 kg [facility] BMI 2021-08-11 20:59:00 38.97 kg/m2 [facility] Systolic blood pressure 2021-08-08 17:03:00 108 mm[Hg] [facility] Diastolic blood pressure 2021-08-08 17:03:00 73 mm[Hg] [facility] Heart rate 2021-08-08 17:03:00 117 /min [facility] Body temperature 2021-08-08 17:03:00 39 [facility] Respiratory rate 2021-08-08 17:03:00 18 /min [facility] Body height 2021-08-08 17:03:00 160 cm [facility] Body weight 2021-08-08 17:03:00 102.105 kg [facility] BMI 2021-08-08 17:03:00 39.87 kg/m2 [facility] Oxygen saturation in Arterial blood by Pulse oximetry 2021-08-08 17:03:00 97 /min [facility] Systolic blood pressure 2021-02-25 15:47:00 106 mm[Hg] [facility] Diastolic blood pressure 2021-02-25 15:47:00 72 mm[Hg] [facility] Heart rate 2021-02-25 15:47:00 83 /min [facility] Body temperature 2021-02-25 15:47:00 36.78 [facility] Respiratory rate 2021-02-25 15:47:00 18 /min [facility] Body height 2021-02-25 15:47:00 160 cm [facility] Body weight 2021-02-25 15:47:00 99.791 kg [facility] BMI 2021-02-25 15:47:00 38.97 kg/m2 [facility] Procedures Procedure Date / Time Performed Performing Clinician Source XR CHEST 2 VW 2023-06-19 01:26:07 Karla Janaycarey Araujo [facility] COLONOSCOPY 2023-03-25 15:39:00 Latasha Madden [facility] POCT TEST 2023-03-25 14:45:00 Osman Madden [facility] POCT TEST 2023-03-25 14:45:00 Osman Madden [facility] COLONOSCOPY (ENDO) 2023-03-25 12:59:19 Jason Aaron [facility] COLONOSCOPY (ENDO) 2023-03-25 12:59:19 Jason Aaron [facility] EXTERNAL PROVIDER RECORDS 2023-03-23 06:01:00 Doctor Unassigned, [place] MEDICAL RELEASE/CLEARANCE FORMS 2023-03-03 06:01:00 Doctor Unassigned, [place] POCT TEST 2023-02-10 21:20:00 Jaylin Masters [facility] LIPASE 2023-02-10 21:17:00 Jami Mastersherine [facility] TROPONIN I 2023-02-10 21:17:00 Brendon Chen [facility] COMP. METABOLIC PANEL ([id number]) 2023-02-10 21:17:00 Chen [facility] CBC WITH DIFF 2023-02-10 21:17[facility] 2023-02-10 20:58:52 Jami Mastersherine [facility] FLU VACC ([id number]), 6 MO-64 YRS, .5ML, IM, QUAD (FLUCELVAX) 2022-12-29 14:30:35 Viktor Johnson [facility] POCT MOLECULAR STREP 2022-11-05 16:28:00 Unknown, Attran snider [facility] PATIENT FINANCIAL POLICY 2022-11-05 15:56:09 Doctor Unassigned, [place] POCT SARS-COV-2 ANTIGEN (BINAX NOW) 2022-11-05 00:00:00 Kathy Tomlin [facility] BI SCREENING TOMOSYNTHESIS BILATERAL 2022-04-09 15:21:00 Sada Kathy Creighton [facility] XR FOOT 3+ VW RIGHT 2022-03-31 16:34:51 Bella Aaron ukwu [facility] ASSIGNMENT OF BENEFITS 2022-03-31 16:06:58 Docto r Unassigned, [place] REFERRAL- REQUEST/RESPONSE 2022-02-15 06:01:00 Doctor Unassigned, [place] SARS-COV-2 COVID-19 VACCINE 12 YRS+, BIVALENT 0.5ML, IM (MODERNA BOOSTER) 2022-02-08 15:12:47 Doctor Unassigned, [place] [facility] FLU VACC (), 6 MO-64 YRS, .5ML, IM, QUAD (FLUCELVAX) 2021-12-23 15:15:11 Jackie Rome [facility] DME/SUPPLY JUSTIFICATION 2021-12-23 05:01:00 Doc tor Unassigned, [place] XR CHEST 2 VW 2021-08-08 17:41[facility] 2021-08-08 17:07:00 Alida Lewis [facility] POCT MOLECULAR STREP 2021-08-08 17:02:00 Ginna Lewis [facility] ASSIGNMENT OF BENEFITS 2021-03-23 16:28:59 Docto r Unassigned, [place] Encounters Start Date/Time End Date/Time Encounter Type Admission Type Attending Clinicians Care Facility Care Department Encounter ID Source 2024-04-05 10:00:00 2024-04-05 10:00:00 Outpatient KASEY MORTON [facility] [id number] [facility] 2023-06-20 00:00:00 2023-06-20 00:00:00 Telephone Candida Swift 1.2840.114 350.1.13.10 4.2.7.2.686 [id number] [facility] 2023-06-20 00:00:00 2023-06-20 00:00:00 Transition of Care Candida Swift [id number] 350.1.13.10 4.2.7.2.686 [id number] [facility] 2023-06-18 19:00:00 2023-06-18 21:23:00 Emergency X KARLA JANAY [facility] E[facility] [id number] [facility] 2023-06-18 19:00:00 2023-06-18 21:23:00 Emergency Janay Acosta [facility] 1.0.114 350.1.13.10 4.2.7.2.686 [id number] [facility] 2023-04-29 13:00:00 2023-04-29 13:00:00 Outpatient R LUDMILA PIERRE [facility] [id number] [facility] 2023-04-04 10:00:00 2023-04-04 10:00:00 Office Visit Kasey Kurtz [facility] 1.284.114 350.1.13.10 4.2.7.2.686 [id number] [facility] 2023-04-04 10:00:00 2023-04-04 09:49:13 Outpatient R ANGELIKA KURTZSSICA [facility] [id number] [facility] 2023-04-01 14:30:00 2023-04-01 15:00:00 Office Visit Ldumila Pierre [facility] 1.284.114 350.1.13.10 4.2.7.2.686 [id number] [facility] 2023-04-01 14:30:00 2023-04-01 14:30:00 Outpatient R NATA S, LUDMILA NATA S, LUDMILA [facility] [id number] [facility] 2023-03-29 13:30:00 2023-03-29 13:30:00 Outpatient R KASEY KURTZ [facility] [id number] [facility] 2023-03-25 08:35:00 2023-03-25 11:30:00 Outpatient R MADDEN LATASHA [facility] [id number] [facility] 2023-03-25 08:35:00 2023-03-25 11:30:00 Hospital Encounter MaddenOsmanel [facility] 1.840.114 350.1.13.10 4.2.7.2.686 [id number] [facility] 2023-03-25 08:34:00 2023-03-25 09:51:00 Surgery Latasha Madden [facility] 1.840.114 350.1.13.10 4.2.7.2.686 [id number] [facility] 2023-03-23 00:00:00 2023-03-23 00:00:00 Orders Only Doctor Unassigned, [place] [facility] 1.2840.114 350.1.13.10 4.2.7.2.686 [id number] [facility] 2023-03-23 00:00:00 2023-03-23 00:00:00 Telephone MaddenLatasha gray [facility] 1.2840.114 350.1.13.10 4.2.7.2.686 [id number] [facility] 2023-03-22 00:00:00 2023-03-22 00:00:00 [facility] [id number] 350.1.13.10 4.2.7.2.686 [id number] [facility] 2023-03-03 13:00:00 2023-03-03 13:47:48 Outpatient R PHAN, [facility] [id number] [facility] 2023-03-03 13:00:00 2023-03-03 13:47:48 Office Visit Sylvester [facility] [id number] 350.1.13.10 4.2.7.2.686 [id number] [facility] 2023-03-03 00:00:00 2023-03-03 00:00:00 Orders Only Doctor Unassigned, [place] [facility] 1.2.840.114 350.1.13.10 4.2.7.2.686 [id number] [facility] 2023-02-28 13:30:00 2023-02-28 14:00:00 Office Visit Ludmila Pierre [facility] BUILDING 1.2.840.114 350.1.13.10 4.2.7.2.686 [id number] [facility] 2023-02-28 13:30:00 2023-02-28 13:30:00 Outpatient R EMILIA-RENO S, LUDMILA EMILIA-RENO SEDWINALUDMILA [facility] [id number] [facility] 2023-02-25 16:00:00 2023-02-25 16:00:40 Outpatient R ANGELIKA [facility] [id number] [facility] 2023-02-25 16:00:00 2023-02-25 16:00:40 [facility] 1.2840.114 350.1.13.10 4.2.7.2.686 [id number] [facility] 2023-02-24 00:00:00 2023-02-24 00:00:00 Letter (Out) [facility] 1.2840.114 350.1.13.10 4.2.7.2.686 [id number] [facility] 2023-02-24 00:00:00 2023-02-24 00:00:00 Telephone Jing [facility] BUILDING 1.2840.114 350.1.13.10 4.2.7.2.686 [id number] [id number] [facility] 2023-02-16 00:00:00 2023-02-16 00:00:00 Patient Secure Msg Doctor Unassigned, [place] [facility] 1.2.840.114 350.1.13.10 4.2.7.2.686 [id number] [facility] 2023-02-15 00:00:00 2023-02-15 00:00:00 Pre Visit Outreach Viv Sol ZACHERY ACOSTA 1.2.840.114 350.1.13.10 4.2.7.2.686 [id number] [facility] 2023-02-14 16:20:00 2023-02-14 16:20:00 Office Visit Jing [facility] BUILDING 1.2840.114 350.1.13.10 4.2.7.2.686 [id number] [id number] [facility] 2023-02-14 13:45:00 2023-02-14 14:00:00 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 BU[facility] 1.2.840.114 350.1.13.10 4.2.7.2.686 [id number] [id number] [facility] 2023-02-14 00:00:00 2023-02-14 00:00:00 Telephone Candelaria Aaron [facility] 1.2.840.114 350.1.13.10 4.2.7.2.686 [id number] [id number] [facility] 2023-02-10 14:23:00 2023-02-10 18:31:00 Emergency X CHEN MASTERS [facility] ERT [id number] [facility] 2023-02-10 14:23:00 2023-02-10 18:31:00 Emergency Chen Masters [facility] 1.2.840.114 350.1.13.10 4.2.7.2.686 [id number] [facility] 2023-02-09 10:00:00 2023-02-09 10:00:00 Outpatient R OBI-GLORIA , ROME OBI-GLORIA , ROME [facility] [id number] [facility] 2023-02-09 09:30:00 2023-02-09 09:30:00 Outpatient R CANDELARIA AARON GALENJENECHUKWU [facility] [id number] [facility] 2022-12-29 10:00:00 2022-12-29 10:30:00 Office Visit Jackie Rome [facility] PROFESSIO NAL BUILDING 1.2.840.114 350.1.13.10 4.2.7.2.686 [id number] [facility] 2022-12-29 10:00:00 2022-12-29 09:51:34 Outpatient R JACKIE ROME STRAKYOmaira [facility] [id number] [facility] 2022-11-05 11:20:00 2022-11-05 11:41:39 Outpatient KATHY HERNANDEZ [facility] [id number] [facility] 2022-11-05 11:20:00 2022-11-05 11:41:39 Urgent Care Kathy Tomlin Unknown, Attending [facility] 1..840.114 350.1.13.10 4.2.7.2.686 [id number] [facility] 2022-11-05 00:00:00 2022-11-05 00:00:00 Orders Only Doctor Unassigned, [place] [facility] 1.840.114 350.1.13.10 4.2.7.2.686 [id number] [facility] 2022-04-09 08:42:42 2022-04-09 23:59:00 Outpatient KATHY HERNANDEZ [facility] [id number] [facility] 2022-04-09 08:42:42 2022-04-09 23:59:00 Hospital Encounter Kathy Tomlin [facility] 1.840.114 350.1.13.10 4.2.7.2.686 [id number] [facility] 2022-03-31 10:08:34 2022-03-31 23:59:00 Outpatient R CANDELARIA AARON OGECHUKWU [facility] [id number] [facility] 2022-03-31 10:08:34 2022-03-31 23:59:00 Hospital Encounter Candelaria Aaron [facility] 1.2.840.114 350.1.13.10 4.2.7.2.686 [id number] [facility] 2022-03-31 09:30:00 2022-03-31 09:48:22 Office Visit Candelaria Aaron [facility] 1.2840.114 350.1.13.10 4.2.7.2.686 [id number] [facility] 2022-03-31 00:00:00 2022-03-31 00:00:00 Orders Only Doctor Unassigned, [place] [facility] 1.2840.114 350.1.13.10 4.2.7.2.686 [id number] [id number] [facility] 2022-02-25 10:30:00 2022-02-25 10:45:00 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, Adc Lab Kathy Tomlin [facility] 1.2840.114 350.1.13.10 4.2.7.2.686 [id number] [facility] 2022-02-25 09:30:00 2022-02-25 10:09:55 Outpatient R KATHY TOMLIN [facility] [id number] [facility] 2022-02-25 09:30:00 2022-02-25 10:09:55 Office Visit Kathy Tomlin [facility] 1.2840.114 350.1.13.10 4.2.7.2.686 [id number] [facility] 2022-02-15 00:00:00 2022-02-15 00:00:00 Orders Only Doctor Unassigned, [place] [facility] 1.2.840.114 350.1.13.10 4.2.7.2.686 [id number] [id number] [facility] 2022-02-08 10:00:00 2022-02-08 10:00:00 Imm/Inj Visit Vaccine, Adc Family Medicine Candelaria Aaron [facility] PROFESSIO NAL BUILDING 1.2.840.114 350.1.13.10 4.2.7.2.686 [id number] 044 [id number] [facility] 2022-02-08 09:30:00 2022-02-08 09:45:00 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, Adc Lab Candelaria Aaron [facility] NAL BUILDING 1.2.840.114 350.1.13.10 4.2.7.2.686 [id number] [facility] 2022-02-08 09:00:00 2022-02-08 09:12:30 Outpatient R CANDELARIA AARON CANDELARIA [facility] [id number] [facility] 2022-02-08 09:00:00 2022-02-08 09:12:30 Office Visit Candelaria Aaron [facility] PROFESSIO NAL BUILDING 1.2.840.114 350.1.13.10 4.2.7.2.686 [id number] [id number] [facility] 2022-02-08 08:30:00 2022-02-08 09:12:19 Office Visit Candelaria Aaron [facility] PROFESSIO NAL BUILDING 1.2.840.114 350.1.13.10 4.2.7.2.686 [id number] 044 [id number] [facility] 2021-12-23 09:20:00 2021-12-23 09:40:00 Telemedici ne Visit Jackie Rome [facility] PROFESSIO [facility] BUILDING 1..114 350.1.13.10 4.2.7.2.686 [id number] [id number] [facility] 2021-12-23 09:20:00 2021-12-23 09:20:00 Outpatient R JACKIE ROME STRAKYOmaira [facility] [id number] [facility] 2021-12-23 00:00:00 2021-12-23 00:00:00 Orders Only Doctor Unassigned, [place] [facility] 1.84.114 350.1.13.10 4.2.7.2.686 [id number] [facility] 2021-12-02 11:20:00 2021-12-02 11:20:00 Outpatient R JACKIE ROME STRAKYOmaira [facility] [id number] [facility] 2021-08-11 16:00:00 2021-08-11 17:00:00 Nurse Visit Therapy, Adc Walker Brown [facility]GICAL [facility]INCON 1.84.114 350.1.13.10 4.2.7.2.686 [id number] [facility] 2021-08-11 16:00:00 2021-08-11 16:00:00 Outpatient WALKER LEMOS [facility] [id number] [facility] 2021-08-09 00:00:00 2021-08-09 00:00:00 Letter (Out) Brianne Carlos [facility] 1..114 350.1.13.10 4.2.7.2.686 [id number] [facility] 2021-08-08 12:23:52 2021-08-08 23:59:00 [facility] 1.84.114 350.1.13.10 4.2.7.2.686 [id number] [facility] 2021-08-08 12:00:00 2021-08-08 13:00:04 [facility] [id number] [facility] 2021-08-08 12:00:00 2021-08-08 12:20:00 Urgent Care Joshua [facility] BUILDING 1.84.114 350.1.13.10 4.2.7.2.686 [id number] [facility] 2021-08-08 12:00:00 2021-08-08 12:00:00 Outpatient R SARAH LEWIS [facility] [id number] [facility] 2021-05-05 10:20:00 2021-05-05 09:50:02 Outpatient R TASNEEM ZAVALA [facility] [id number] [facility] 2021-03-23 10:33:19 2021-03-23 23:59:00 Outpatient R KATHARINEGENIE KATHY [facility] [id number] [facility] 2021-03-23 10:33:19 2021-03-23 23:59:00 Hospital Encounter Kathy Tomlin [facility] 1..114 350.1.13.10 4.2.7.2.686 [id number] [facility] 2021-03-23 00:00:00 2021-03-23 00:00:00 Orders Only Doctor Unassigned, [place] [facility] 1.0.114 350.1.13.10 4.2.7.2.686 [id number] [facility] 2021-03-02 00:00:00 2021-03-02 00:00:00 Case Management Kayce Roman [facility] BUILDING 1.2.840.114 350.1.13.10 4.2.7.2.686 [id number] [facility] 2021-02-25 10:00:00 2021-02-25 10:16:57 Outpatient R [facility] [id number] [facility] 2021-02-25 10:00:00 2021-02-25 10:16:57 Office Visit Sada Kathy [facility] 1.2.840.114 350.1.13.10 4.2.7.2.686 [id number] [facility] 2021-02-25 10:00:00 2021-02-25 10:16:57 Outpatient R SADA [facility] [id number] [facility] 2021-02-25 10:00:00 2021-02-25 10:16:57 Outpatient R SADA KATHY [facility] [id number] [facility] 2021-02-25 10:00:00 2021-02-25 10:00:00 Outpatient R SADA [facility] [id number] [facility] 2021-02-10 09:30:00 2021-02-10 09:30:00 Outpatient R KAYCE ROMAN [facility] [id number] [facility] 2021-02-03 10:40:00 2021-02-03 11:53:37 Outpatient R KAYCE ROMAN [facility] [id number] [facility] 2021-02-03 10:20:32 2021-02-03 11:53:37 Office Visit Kayce Roman [facility] 1.2840.114 350.1.13.10 4.2.7.2.686 [id number] [facility] 2021-02-03 00:00:00 2021-02-03 00:00:00 Orders Only Doctor Unassigned, [place] [facility] 1.2.840.114 350.1.13.10 4.2.7.2.686 [id number] [id number] [facility] 2021-01-21 00:00:00 2021-01-21 00:00:00 Patient Secure Msg Doctor Unassigned, [place] [facility] 1.2840.114 350.1.13.10 4.2.7.2.686 [id number] [facility] 2021-01-15 00:00:00 2021-01-15 00:00:00 Letter (Out) Teri De Paz [facility] 1.2.114 350.1.13.10 4.2.7.2.686 [id number] [facility] 2021-01-15 00:00:00 2021-01-15 00:00:00 Telephone Lucas [facility] MEDICAL OFFICE BUILDING 1.114 350.1.13.10 4.2.7.2.686 [id number] [facility] 2021-01-14 11:20:00 2021-01-14 11:26:47 Outpatient R LUCAS TASNEEM [facility] [id number] [facility] 2021-01-14 11:20:00 2021-01-14 11:26:47 Outpatient R LUCAS TASNEEM [facility] [id number] [facility] 2021-01-14 11:02:04 2021-01-14 11:26:47 Urgent Care Lucas [facility] MEDICAL OFFICE BUILDING 1..114 350.1.13.10 4.2.7.2.686 [id number] [facility] 2020-11-26 11:30:00 2020-11-26 11:30:00 Outpatient R RIA KENNEDYOmaira BERUMENMARCIA GUEVARAKYOmaira [facility] [id number] [facility] 2020-11-26 10:59:06 2020-11-26 11:19:06 Office Visit Jackie Rome [facility] Building 1.2840.114 350.1.13.10 4.2.7.2.686 [id number] [facility] 2020-09-16 09:32:32 2020-09-16 23:59:00 Hospital Encounter Stephanie Lira [facility] 1.284.114 350.1.13.10 4.2.7.2.686 [id number] [facility] 2020-09-16 09:03:30 2020-09-16 09:31:48 Urgent Care Provider, [facility] Soraya Critical access hospital Office Building One 1.284.114 350.1.13.10 4.2.7.2.686 [id number] [facility] 2020-09-16 09:20:00 2020-09-16 09:20:00 Outpatient R [facility] [id number] [facility] 2020-08-12 14:40:00 2020-08-12 14:40:00 Outpatient [facility] [id number] [facility] 2020-08-05 15:21:17 2020-08-05 16:23:27 Ancillary Visit Daniella Marr Craig L [facility] Building 1.284.114 350.1.13.10 4.2.7.2.686 [id number] [facility] 2020-07-31 08:50:32 2020-07-31 09:59:57 Ancillary Visit Daniella Marr Peter [facility] 1.2.840.114 350.1.13.10 4.2.7.2.686 [id number] [facility] 2020-07-29 13:03:39 2020-07-29 13:45:36 Ancillary Visit Daniella Marr Peter [facility] 1.2.840.114 350.1.13.10 4.2.7.2.686 [id number] [facility] 2020-07-24 13:02:02 2020-07-24 13:42:02 Ancillary Visit Daniella Marr Peter [facility] 1.2.840.114 350.1.13.10 4.2.7.2.686 [id number] [facility] 2020-07-24 13:00:00 2020-07-24 13:00:00 Outpatient R [facility] [id number] [facility] 2020-07-22 07:44:55 2020-07-22 08:24:55 Ancillary Visit Chiquita Espana [facility] 1.2.840.114 350.1.13.10 4.2.7.2.686 [id number] [facility] 2020-07-17 09:48:46 2020-07-17 10:21:36 Office Visit Corinne Hatfield [facility] Health Surgical Special gee Seth 1.2.840.114 350.1.13.10 4.2.7.2.686 [id number] [facility] 2020-07-17 10:15:00 2020-07-17 10:15:00 Outpatient R CORINNE HATFIELD [facility] [id number] [facility] 2020-07-17 00:00:00 2020-07-17 00:00:00 Orders Only Doctor Unassigned, [place] [facility] 1.2840.114 350.1.13.10 4.2.7.2.686 [id number] [facility] 2020-07-11 08:28:20 2020-07-11 10:24:33 Ancillary Visit Edmar Espana Craig L [facility] 1.2.840.114 350.1.13.10 4.2.7.2.686 [id number] [facility] 2020-07-10 16:40:00 2020-07-10 16:40:00 Outpatient [place] [facility] [id number] [facility] 2020-07-09 10:59:08 2020-07-09 11:39:08 Ancillary Visit Chiquita Espana Craig L [facility] 1.2.840.114 350.1.13.10 4.2.7.2.686 [id number] [facility] 2020-07-04 09:35:31 2020-07-04 10:39:51 Ancillary Visit Chiquita Espana Craig [facility] 1.2.840.114 350.1.13.10 4.2.7.2.686 [id number] [facility] 2020-07-02 12:18:08 2020-07-02 23:59:00 Hospital Encounter Corinne Hatfield [facility] 1.2840.114 350.1.13.10 4.2.7.2.686 [id number] [facility] 2020-07-02 00:00:00 2020-07-02 00:00:00 Outpatient R BONNY HATFIELDIG [facility] [id number] [facility] 2020-07-02 00:00:00 2020-07-02 00:00:00 Outpatient R BONNY HATFIELDIG [facility] [id number] [facility] 2020-07-01 00:00:00 2020-07-01 00:00:00 Telephone HatfieldCorinne [facility] Surgical Special gee Seth 1.2840.114 350.1.13.10 4.2.7.2.686 [id number] [facility] 2020-06-25 10:48:09 2020-06-25 11:30:52 Ancillary Visit Viv Chan Craig [facility] 1.84.114 350.1.13.10 4.2.7.2.686 [id number] [facility] 2020-06-25 11:00:00 2020-06-25 11:00:00 Outpatient R CORINNE HATFIELD [facility] [id number] [facility] 2020-06-23 13:59:01 2020-06-23 14:58:24 Office Visit HatfieldCorinne [facility] Surgical Special gee Seth 1.2840.114 350.1.13.10 4.2.7.2.686 [id number] [facility] 2020-06-23 14:15:00 2020-06-23 14:15:00 Outpatient R CORINNE HATFIELD [facility] [id number] [facility] 2020-06-23 00:00:00 2020-06-23 00:00:00 Orders Only Doctor Unassigned, [place] [facility] 1..114 350.1.13.10 4.2.7.2.686 [id number] [facility] 2020-06-12 16:40:00 2020-06-12 16:40:00 Outpatient NIKOLAY ROBERTS [facility] [id number] [facility] 2020-06-10 12:00:15 2020-06-10 23:59:00 Hospital Encounter Cintia Sullivan [facility] 1.2840.114 350.1.13.10 4.2.7.2.686 [id number] [facility] 2020-06-10 00:00:00 2020-06-10 00:00:00 Outpatient R CINTIA SULLIVAN [facility] [id number] [facility] 2020-06-05 08:03:59 2020-06-05 09:33:07 Office Visit Cintia Sullivan [facility] Professio nal Building 1.2840.114 350.1.13.10 4.2.7.2.686 [id number] [facility] 2020-06-05 09:00:00 2020-06-05 09:00:00 Outpatient R CINTIA SULLIVAN [facility] [id number] [facility] 2020-05-29 00:00:00 2020-05-29 00:00:00 Patient Outreach Nikolay Roberts [facility] 1.0.114 350.1.13.10 4.2.7.2.686 [id number] [facility] 2020-05-02 00:00:00 2020-05-02 00:00:00 Telephone Kayce Roman [facility] Professio nal Building 1.840.114 350.1.13.10 4.2.7.2.686 [id number] [facility] 2020-04-30 00:00:00 2020-04-30 00:00:00 Orders Only Doctor Unassigned, [place] [facility] 1.2840.114 350.1.13.10 4.2.7.2.686 [id number] [facility] 2020-04-02 00:00:00 2020-04-02 00:00:00 Telephone Kayce Roman [facility] Building 1.2.840.114 350.1.13.10 4.2.7.2.686 [id number] [facility] 2020-03-31 00:00:00 2020-03-31 00:00:00 Orders Only Doctor Unassigned, [place] [facility] 1.2.840.114 350.1.13.10 4.2.7.2.686 [id number] [facility] 2020-03-12 00:00:00 2020-03-12 00:00:00 Telephone Kayce Roman [facility] 1.2.840.114 350.1.13.10 4.2.7.2.686 [id number] [facility] 2020-03-04 00:00:00 2020-03-04 00:00:00 Telephone Kayce Roman [facility] Building 1.2.840.114 350.1.13.10 4.2.7.2.686 [id number] [facility] 2020-02-26 08:37:06 2020-02-26 09:38:33 Office Visit Kathy Tomlin [facility] 1.2.840.114 350.1.13.10 4.2.7.2.686 [id number] [facility] 2020-02-26 09:00:00 2020-02-26 09:00:00 Outpatient R KATHY TOMLIN [facility] [id number] [facility] 2020-02-23 10:56:25 2020-02-23 23:59:00 Hospital Encounter Kayce Roman [facility] 1.2.840.114 350.1.13.10 4.2.7.2.686 [id number] [facility] 2020-02-23 00:00:00 2020-02-23 00:00:00 Outpatient R ROMANKAYCE [facility] [id number] [facility] 2020-02-22 09:00:00 2020-02-22 09:00:00 Outpatient R SADA KATHY [facility] [id number] [facility] 2020-02-11 09:30:00 2020-02-11 09:30:00 Outpatient R [facility] [id number] [facility] 2020-02-11 09:09:27 2020-02-11 09:24:27 Laboratory Only Only, Adc Test Jonah Gomez [facility] 1.2.840.114 350.1.13.10 4.2.7.2.686 [id number] [facility] 2020-02-04 11:26:48 2020-02-04 11:41:48 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, 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 Kayce Roman [facility] Professio nal Building 1.2.840.114 350.1.13.10 4.2.7.2.686 [id number] [facility] 2020-02-04 09:28:38 2020-02-04 11:18:51 [facility] 1.2.840.114 350.1.13.10 4.2.7.2.686 [id number] [facility] 2020-02-04 09:40:00 2020-02-04 09:40:00 Outpatient R ROMANMARIELYKAYCE [facility] [id number] [facility] 2020-02-04 00:00:00 2020-02-04 00:00:00 Orders Only Doctor Unassigned, [place] [facility] 1.84.114 350.1.13.10 4.2.7.2.686 [id number] [facility] 2019-10-31 11:00:00 2019-10-31 11:00:00 Outpatient R JACKIE ROME STRAKYOmaira [facility] [id number] [facility] 2019-10-31 08:08:29 2019-10-31 08:38:29 Telemedici ne Visit Jackie Rome [facility] Building 1.84.114 350.1.13.10 4.2.7.2.686 [id number] [facility] 2019-09-26 00:00:00 2019-09-26 00:00:00 Telephone Balwinder Xie [facility] 1.84.114 350.1.13.10 4.2.7.2.686 [id number] [facility] 2019-09-24 09:51:15 2019-09-24 10:11:15 Laboratory Only Lab, Adc Fam Pob I Janette Sophie [facility] Office [facility] 1.84.114 350.1.13.10 4.2.7.2.686 [id number] [facility] 2019-09-24 09:40:00 2019-09-24 09:40:00 Outpatient R SOPHIE MURGUIA [facility] [id number] [facility] 2019-05-23 09:10:12 2019-05-23 09:35:55 Office Visit Kathy Tomlin [facility] 1.284.114 350.1.13.10 4.2.7.2.686 [id number] [facility] 2019-05-23 09:30:2019-05-23 09:30:00 Outpatient KATHY HERNANDEZ [facility] [id number] [facility] 2019-03-19 08:35:06 2019-03-19 23:59:00 Outpatient KATHY HERNANDEZ [facility] [id number] [facility] 2019-03-13 13:22:14 2019-03-13 23:59:00 Outpatient Corine HATFIELD CORINNE [facility] [id number] [facility] 2018-11-23 00:00:00 2018-11-23 00:00:00 Telephone Kayce Roman [place] 1.2.840.114 350.1.13.10 4.2.7.2.686 [id number] [facility] 2018-10-18 11:10:39 2018-10-18 11:39:07 [facility] 1.2.840.114 350.1.13.10 4.2.7.2.686 [id number] [facility] 2018-10-18 00:00:00 2018-10-18 00:00:00 Orders Only Doctor Unassigned, [place] [facility] 1.2.840.114 350.1.13.10 4.2.7.2.686 [id number] [facility] Results Test Description Test Time Test Comments Results Resul t Comments Source XR CHEST 2 VW 2023-06-19 01:44:56 History: r/o pna . Exam: XR CHEST 2 VW Date: 06/18/2023 7:15 PM Ordering provider: JANAY ACOSTA Technical quality: Adequate Comparison: 02/10/2023. Findings: Frontal and lateral views of the chest are obtained. The cardiac silhouette is normal in size. No evidence of infiltrate,pleur al effusion, CHF, or pneumothorax. [facility] Qzsq1682-25-64 14:46:00* Test Item Value Reference Range Interpretation Comme nts POCT PREG (test code = 1605) Negative On board controls acceptable with C Line (test code = 3574) Yes POCT PREG LOT # (test code = 3575) [id number] POCT PREG TEST DATE ( test code = 3576) [facility] 22:10:48* Test Item Value Reference Range Interpretation Comme nts TROPONIN I (test code = 4219419137) 0.007 ng/mL <=0.034 APARNA (test code = APARNA) Reference (Normal) Range (defined by the 99th percentile reference limit): <= 0.034 ng/mL Note: Cardiac troponin begins to rise 3-4 hours after the onset of ischemia. Repeat in 4-6 hours if the sample was drawn within 3-4 hours of the onset of the symptom and found normal. Diagnosis of myocardial injury is made with acute changes in cTn concentrations with at least one serial sample above the 99th percentile upper reference limit (URL), taken together with the patient's clinical presentation. Biotin has been reported to cause a negative bias, interpret results relative to patient's use of biotin. Lab Interpretation (test code = 16283-3) Normal [facility]. METABOLIC PANEL (47918)2023-02-10 21:59:25* Test Item Value Reference Range Interpretation Comme nts NA (test code = 3706574610) 139 mmol/L 135-145 K (test code = 0766465668) 4.2 mmol/L 3.5-5.0 CL (test code = 0313889635) 103 mmol/L 98-108 CO2 TOTAL (test code = 7716255357) 30 mmol/L 23-31 AGAP (test code = 5692155808) 6 2-16 BUN (test code = 8975448553) 13 mg/dL 7-23 GLUCOSE (test code = 7182269724) 100 mg/dL 70-110 CREATININE (test code = 1720593173) 0.66 mg/dL 0.50-1.04 TOTAL BILI (test code = 1549207298) 0.6 mg/dL 0.1-1.1 CALCIUM (test code = 8587125263) 9.5 mg/dL 8.6-10.6 T PROTEIN (test code = 4506774513) 8.3 g/dL 6.3-8.2 H ALBUMIN (test code = 0393213288) 4.3 g/dL 3.5-5.0 ALK PHOS (test code = 0934779569) 67 U/L 34-122 ALTv (test code = 1742-6) 18 U/L 5-35 AST(SGOT) (test code = 6953015715) 31 U/L 13-40 eGFR (test code = 13825-6) 108.4 mL/min/1.73m2 CKD-EPI eGFR (2020). Assuming creatinine has been stable day-to-day for at least three months, the eGFR indicates Category G1 (>= 90 mL/min/1.73 m2) Lab Interpretation (test code = 20562-5) [facility] YDOMA0500-12-53 21:59:05* Test Item Value Reference Range Interpretation Comme nts LIPASE (test code = 6433923904) 99 U/L 0-220 Lab Interpretation (test cod e = 26016-7) Normal [facility] MOHU6617-22-46 21:35:43* Test Item Value Reference Range Interpretation Comme nts WBC (test code = 6690-2) 8.78 See_Comment [Automated [employer] Devario] The system which generated this result transmitted reference range: 4.30 - 11.10 10*3/?L. The reference range was not used to interpret this result as normal/abnormal. RBC (test code = 789-8) 3.78 See_Comment L [Automated Grouplya ge] The system which generated this result transmitted reference range: 3.93 - 5.25 10*6/?L. The reference range was not used to interpret this result as normal/abnormal. HGB (test code = 718-7) 11.7 g/dL 11.6-15.0 HCT (test code = 4544-3) 34.9 % 35.7-45.2 L MCV (test code = 787-2) 92.3 fL 80.6-95.5 MCH (test code = 785-6) 31.0 pg 25.9-32.8 MCHC (test code = 786-4) 33.5 g/dL 31.6-35.1 RDW-SD (test code = 58464-4) 41.9 fL 39.0-49.9 RDW-CV (test code = 788-0) 12.6 % 12.0-15.5 PLT (test code = 777-3) 323 See_Comment [Automated messa ge] The system which generated this result transmitted reference range: 166 - 358 10*3/?L. The reference range was not used to interpret this result as normal/abnormal. MPV (test code = 69981-1) 9.5 fL 9.5-12.9 NRBC/100 WBC (test code = 5842372972) 0.0 See_Comment [Automated me ssage] The system which generated this result transmitted reference range: 0.0 - 10.0 /100 WBCs. The reference range was not used to interpret this result as normal/abnormal. NRBC x10^3 (test code = 9485853256) See_Comment [Automated messa ge] The system which generated this result transmitted reference range: 10*3/?L. The reference range was not used to interpret this result as normal/abnormal. GRAN MAT (NEUT) % (test code = 770-8) 65.4 % IMM GRAN % (test code = 9034746898) 0.50 % LYMPH % (test code = 736-9) 24.3 % MONO % (test code = 5905-5) 6.3 % EOS % (test code = 713-8) 2.8 % BASO % (test code = 706-2) 0.7 % GRAN MAT x10^3(ANC) (test code = 5278272610) 5.75 10*3/uL 1.88-7.09 IMM GRAN x10^3 (test code = 0711415402) 0.04 10*3/uL 0.00-0.06 LYMPH x10^3 (test code = 731-0) 2.13 10*3/uL 1.32-3.29 MONO x10^3 (test code = 742-7) 0.55 10*3/uL 0.33-0.92 EOS x10^3 (test code = 711-2) 0.25 10*3/uL 0.03-0.39 BASO x10^3 (test code = 704-7) 0.06 10*3/uL 0.01-0.07 Lab Interpretation (test code = 16454-8) Abnormal [facility] VNIY4093-12-43 21:20:00* Test Item Value Reference Range Interpretation Comme nts POCT PREG (test code = 1605) Negative On board controls acceptable with C Line (test code = 3574) Yes POCT PREG LOT # (test code = 3575) [id number] POCT PREG TEST DATE ( test code = 3576) 05/22/2024 Lab Interpretation (test cod e = 17432-2) Normal [facility] MOLECULAR MZATG9999-30-37 16:36:17* Test Item Value Reference Range Interpretation Comme nts POCT Molecular Strep (test c ode = 77567-0) Negative Negative Lab Interpretation (test cod e = 86326-9) Normal [facility] SARS-COV-2 ANTIGEN (BINAX NOW)2022-11-05 16:30:00* Test Item Value Reference Range Interpretation Comme nts POCT SARS-COV-2 ANTIGEN (david t code = 17039-7) Positive Not Detected A On board controls acceptable with C Line (test code = 3574) Yes Lab Interpretation (test cod e = 78206-7) Abnormal [facility] MOLECULAR DHN3838-62-08 17:18:59* Test Item Value Reference Range Interpretation Comme nts POCT Molecular FluA (test co de = 05506-1) Negative Negative POCT Molecular FluB (test co de = 05578-2) Negative Negative Lab Interpretation (test cod e = 52321-9) Normal [facility] MOLECULAR JESMW3645-31-09 17:09:31* Test Item Value Reference Range Interpretation Comme nts POCT Molecular Strep (test c ode = 43558-3) Negative Negative Lab Interpretation (test cod e = 45689-0) Normal [facility] History and Physical Notes Date/Time Note Provider Source 2023-03-25 08:40:21 NGiSMofdPYf/6yL5ko8bP0IZyOW+vwjPxRvjlgJw miU 9SewoGCh2Xm0spZZ/P4r83701-03-18M85:40:21For matting of this note is different from the original.INTERVAL H&P1/4Pt was seen and evaluated in Pre-op. There have been no changes to pt's history, physical exam or ROS since patient was seen in clinic on 03/03/2023 by LLOYD Phan. Please see below for full details of H&P.- NPO since midnight- Risks, benefits and alternatives discussed with patient and she wished to proceed with procedure.- Consent signed- To Endo suit today for colonoscopy-----GENERAL SURGERY CLINIC NOTEReason for Visit / Chief Complaint: Colonoscopy ScreeningHistory of Present Illness:03/03/2023:Silva Toro is a 47 year old female with PMHx as mentioned below including Anxiety Bipolar, Depression, HLD, mood swings, psoriasis who presents for a colonoscopy screening. Reports intermittent constipation with use of stool softeners. Denies changes in bowel habits, mucus, hematochezia , nausea, vomiting, abdominal pain , early satiety, fecal incontinence or weight loss. Denies any known family history of colon or rectal cancer patient is adopted. She has never had a colonoscopy in the past. Denies any SOB or chest pain. She is established with cardiology d/t several previous episode of tachycardia with recent ED visit for chest pain without notable cardiovascular findings.Never smokerDenies any previous abdominal surgeriesPast Medical History:Past Medical History:Diagnosis DateAnxietyBipolar 1 disorderDepressionHyperlipidemiaMood swingsOSA on CPAPPsoriasisworsens in the Surgical History:Past Surgical History:Procedure Laterality DateBUNIONECTOMY Right 08/10/2017GANGLION EXCISION Right 02/10/2015right wrist, Surgeon: Corinne Hatfield MD; [facility] DRAINAGE OF ABSCESS Right 2014R AxillaAllergies:AllergiesAllergen ReactionsValtrex [Valacyclovir Hcl] RashMedications:Current Facility-Administered MedicationsMedication Dose Route Frequency Last Rate Last Adminlactated ringers IV infusion 1,000 mL 1,000 mL IV Infusion ONCEFamily History:Family HistoryAdopted: YesFamily history unknown: YesSocial History:Social HistorySocioeconomic HistoryMarital status: SingleOccupational HistoryOccupation: noneTobacco UseSmoking status: NeverPassive exposure: NeverSmokeless tobacco: NeverVaping UseVaping Use: Never usedSubstance and Sexual ActivityAlcohol use: NoAlcohol/week: 0.0 standard drinks of alcoholDrug use: NoSexual activity: Not CurrentlyPartners: MaleBirth control/protection: AbstinenceSocial History NarrativeSingle, lives at home with mother. Adopted.Denies physical and sexual abuse.Review of Systems:All systems negativePhysical Exam:Ht 1.6 m (5' 3") | Wt 99.3 kg (219 lb) | BMI 38.79 kg/m?Physical ExamVitals reviewed.Constitutional:Appearance: Normal appearance.Cardiovascular:Rate and Rhythm: Normal rate and regular rhythm.Pulses: Normal pulses.Heart sounds: Normal heart sounds. No murmur heard.No friction rub. No gallop.Pulmonary:Effort: Pulmonary effort is normal. No respiratory distress.Breath sounds: Normal breath sounds. No stridor. No wheezing, rhonchi or rales.Chest:Chest wall: No tenderness.Abdominal:General: Bowel sounds are normal. There is no distension.Palpations: There is no mass.Tenderness: There is no abdominal tenderness. There is no guarding or rebound.Hernia: No hernia is present.Skin:General: Skin is warm and dry.Neurological:Mental Status: She is alert and oriented to person, place, and time.Psychiatric:Mood and Affect: Mood normal.Behavior: Behavior normal.Judgment: Judgment normal.Laboratory:CBCWBC (10*3/?L)Date Value02/10/2023 8.78RBC (10*6/?L)Date Value02/10/2023 3.78 (L)PLT (10*3/?L)Date Value02/10/2023 323HGB (g/dL)Date Value02/10/2023 11.7HCT (%)Date Value02/10/2023 34.9 (L)CMPNA (mmol/L)Date Value02/10/2023 139K (mmol/L)Date Value02/10/2023 4.2CALCIUM (mg/dL)Date Value02/10/2023 9.5CL (mmol/L)Date Value02/10/2023 103BUN (mg/dL)Date Value02/10/2023 13CREATININE (mg/dL)Date Value02/10/2023 0.66GLUCOSE (mg/dL)Date Value02/10/2023 100CO2 TOTAL (mmol/L)Date Value02/10/2023 30ALBUMIN (g/dL)Date Value02/10/2023 4.3T PROTEIN (g/dL)Date Value02/10/2023 8.3 (H)TOTAL BILI (mg/dL)Date Value02/10/2023 0.6ALT(SGPT) (U/L)Date Value09/09/2015 21ALTv (U/L)Date Value02/10/2023 18AST(SGOT) (U/L)Date Value02/10/2023 31ALK PHOS (U/L)Date Value02/10/2023 67Radiology:No new lab results to reviewAssessment/Diagnosis:Silva Toro is a 47 year old female with PMHx as mentioned below including Anxiety Bipolar, Depression, HLD, mood swings, psoriasis who presents for a colonoscopy screening. Reports intermittent constipation with use of stool softeners. Denies changes in bowel habits, mucus, hematochezia , nausea, vomiting, abdominal pain , early satiety, fecal incontinence or weight loss. Denies any known family history of colon or rectal cancer patient is adopted. She has never had a colonoscopy in the past. Denies any SOB or chest pain. She is established with cardiology d/t several previous episode of tachycardia with recent ED visit for chest pain without notable cardiovascular findings.Plan:1. Schedule screening colonoscopyInformed patient that the major risks including bleeding and perforation will be discussed the morning of the procedure . All questions answered; informed consent not obtained. Preoperative instructions providedInformed patient to contact the clinic with any questions or concerns regarding the prep or procedure. Also inform patient if unable to complete the prep to contact the office. If the bowel prep is not completed properly the procedure may be cancelled.Type of Prep Provided:- 2 day clear liquids and split dose Golytely- Cardiac clearance to be received from Dr. Dinh prior to proceeding with cbzluzwxh56/21/2023.Samra Phan, FNP ssociated attestation - Latasha Madden MD - 03/25/2023 9:45 AM CST Attending Attestation:I personally evaluated and examined the patient on 03/25/[address] Ricketts's interval note as written. I actively participated in the decision-making process. Please see the resident's note for additional details. Patient presents for first colonoscopy, no abdominal c/o, rectal bleeding, FH polyps/CRC, completed split Golytely bowel preparation and is ready, risks/benefits explained, consent signed and in chart, proceed with colonoscopy.Latasha Madden M.D.03/25/2023 09:7094495-9Spkgwyr and physical pjyxAS8774136Vfcgfixg, [place]1.2.840.288516.1.13.104.2.7.2.120824G saiatqrGpasicPJ3940-52-66Y99:45:35History and physical noteTXT1.2.840.431319.1.13.104.2.7.2.269012 |[id number] for patient alfe19842-3Bgqjzqw and physical noteLNNARRATIVEFormatted C-CDA narrative vlwuTST-MZZPNHQJVF-TICDLNWLBNZTNJX[address] NiiwFyjk[id number] AKIZRWORQZVNNTU8073-55-31C84:45:351.2.840.1 44323.1.72.3.15|1.2.840.844080.1.13.104.2.7 .2.727879_[id number] [facility] Notes Date/Time Note Provider Source 2023-06-20 15:32:04 e3CHfIaNtGY6v8R6QSLZ IctMCMQkRfOLuv bjwTLzxI818QHSz2EWxOtgv8wA3E8Q5297 -04-08T15:32:04 Post ED Visit Outreach Call06/20/2023Silva ToroKdsvx371249YPoojebqe Lazos is a 47 year old /White female was admitted on 06/18/23 to [facility]. She was discharged on 06/18/23 with discharge disposition of HR- Routine Discharge.High ED Utilization (number of ER visits over past 90 days) 1ED Diagnosis Acute coughAcute intractable headache,unspecified headache typeAvoidable ED Visit? No.Name of PCP- Candelaria Aaron NPDate of Last Office Visit- 02-14-23Are you having any symptoms? CoughDo you have all of your medications? Yes.Have you scheduled a follow up appointment with your physician? No.Do you need assistance with scheduling a follow up appointment? No.Do you have transportation to your appointment? Parents.Do you have any questions or concerns? No.Interventions:Discuss ED alternatives for avoidable ED (urgent care, PCP appointment).Establish care with [facility] PCP (if no PCP)Confirm follow up visit with established PCP.4) Refer to [facility] to schedule super visit with SW consult (if social issues identified)5) Communicate with physician's office via phone or in basket message as needed.6) Refer to [facility] for patients with high risk or high utilization. 17183-3Rlxdgfwkx encounter SnzgXB8188-80-86T92:34:38Telephone encounter NoteTXT1.2.840.500773.1.13.104.2.7 .2.006332|[id number] for patient butp33981-6FkabFYZIMPGZZCNQirdsluj d C-CDA narrative [id number] Swift RNUT[address] ZoikMkvhefoewKdqgavbrfEVJN49722237 78EPODIXKOKOPUQTCUUQLMKQ1754-79-23 T15:34:381.2.840.985108.1.72.3.15| 1.2.840.971371.1.13.104.2.7.2.7278 [id number] Candida Swift RN [facility] 2023-06-18 21:21:37 xRVZmqsZn/bSK1qjAGsh ul6se9i2Vr+Fa5 Gjv4x2/HEMGt+oi5jB3cTXcFxT8VFc3979 -04-06T21:21:37 Pt given printed and verbal discharge instructions regarding upper respiratory tract infection, acute cough and encouraged hydration,Prescription sent to pharmacyPt verbalized understanding of instructions, pt awake alert oriented, resp reg unlabored, skin w/d, color appropriate for race, moves all ext well,pt encouraged to follow up with pcp.Advised to seek medical attention for new/prolonged/worsening of symptoms,Symptoms difficulty breathing, uncontrolled feverNo adverse reaction to meds given in ER noted upon dischargeAwake, alert oriented, resp reg unlabored, skin w/d, pt leaving amb with steady gait, in no apparent distress, 07432-9Ovmyxoycx department UyryTZ1704-66-36R86:23:08Emergen department NoteTXT1.2.840.366329.1.13.104.2.7 .2.941538|[id number] for patient qncf78610-9CeziPLQNWASGRYVKdtejimx d C-CDA narrative textUT[address] Bw[id number] 10QMKFSNMRZNTLDLKJRAHLJQ2771-96-26 T21:23:081.2.840.956908.1.72.3.15| 1.2.840.275716.1.13.104.2.7.2.7278 [id number] [facility] 2023-06-18 18:55:36 yzTdvDC4WF79Qok+PCIS WPS6TXAI7FyXaF sJAAkvUnO7VwEc/n9p4pYzdZNGgjsl6972 -04-06T18:55:36 Pt arrived ambulatory with c/o cough. Pt states "I have been coughing and my whole body herr from the inside. I have a headache too" 59596-4Hwqqoslyj department Triage ndylRP7729-74-78K14:56:35[facility] Triage noteTXT1.2.840.039237.1.13.104.2.7 .2.959542|[id number] for patient sozj27850-9Wdbutxulb department NoteLNNARRATIVEFormatted C-CDA narrative [id number] E Gillispie RN[id number] 21DIBQPACYSIXSYDYTRQZNXD1364-93-08 T18:56:351.2.840.728122.1.72.3.15| 1.2.840.254968.1.13.104.2.7.2.7278 [id number] Ayaka William RN [facility] 2023-03-23 08:47:40 HZRFvyRVLf/MClNcV0eq lOImZlyQB/xTKr NyevoMqL3+TdBma+5N9AEfoEfELD8q3333 -01-10T08:47:40 Patients legal Guardian notified of results/recommendations, understanding was verbalized via teach back. 49227-7Xukhshomg encounter MxveBC6701-22-40Z36:48:05Telephone encounter NoteTXT1.2.840.018714.1.13.104.2.7 .2.321709|[id number] for patient xgpe76980-7GzccPBJBNDCILWIRqwobvwi d C-CDA narrative [id number] A Hall RN[id number] 67ZCVFAUSSKNIJJZZPBGPNHG6523-33-08 T08:48:051.2.840.153229.1.72.3.15| 1.2.840.296882.1.13.104.2.7.2.7278 79_[id number] Monique Delarosa RN [facility] 2023-03-23 07:51:53 D7csStQA69T7ulgphtlj 3UqhTeetAz6vc3 RHyFuOnssx6SvLiG0vvHHlTUlJF0wT3228 -01-10T07:51:53 Images from the original note were not included. 07622-9Gktzyjhvu encounter CmerHT2169-79-71B10:52:07Telephone encounter NoteTXT1.2.840.072090.1.13.104.2.7 .2.485655|[id number] for patient atqs96895-4BtwwEZINJKUJIPPWfueyakw d C-CDA narrative text[address] HowwE[id number] 84BTVSYDUCJCTLXQMSYMHVZK2330-46-89 T07:52:071.2.840.781052.1.72.3.15| 1.2.840.609157.1.13.104.2.7.2.7278 [id number] [facility] 2023-03-23 07:29:02 6BPzRxYdHi6YsDGs15O8 yVK1bSRF1/s2Wr uVLMtJeNCwpCf9V3vsZfPJ/ftcCRZp5081 -01-10T07:29:02 Cardiac clearance received from Dr. Dinh's office. Records ready for review under external provided tab. 75658-3Shvnqydof encounter VdfqNM9931-93-00E15:30:25Telephone encounter NoteTXT1.2.840.360901.1.13.104.2.7 .2.606132|[id number] for patient ihja63172-7DqqiDXVVLETLSOGPnrwnzsx d C-CDA narrative [id number] Jay Pretty [address] WujiIbftwtvjoEppjytmrhUOIJ07022310 12MXUXHQQMRXMOIOURZJYVHW4127-27-14 T07:30:251.2.840.288186.1.72.3.15| 1.2.840.190068.1.13.104.2.7.2.7278 [id number] Yarelis Jay Pretty [facility] 2023-03-22 10:27:37 Ya9+m96vN6VU3CDPkdW6 bbV+qTOdOo94cv TYpY/dAbzwnzacnb9nyCZvH3tOSpZn0635 -01-09T10:27:37 ANNIE 02/25/23NOV 03/29/23Per ANNIE :1. Migraine with aura and without status migrainosus, not intractable- topiramate 25 mg tablet; Take 1 tablet by mouth 2 (two) times daily for 7 days, THEN 2 tablets 2 (two) times daily for 21 days.Prescription changed to reflect titrated dose. Refilled so there is no lapse in treatment until NOV.Requested PrescriptionsSigned Prescriptions Disp Refillstopiramate 50 mg tablet 60 tablet 2Sig: Take 1 tablet by mouth in the morning and 1 tablet in the evening.Authorizing Provider: Felisa KURTZ User: MARIBEL AGUILLON 72603-8Pdzfokndx encounter ThzsUF0864-96-41K54:31:20Telephone encounter NoteTXT1.2.840.419762.1.13.104.2.7 .2.645851|[id number] for patient slyw54513-9HziqPFKDLFJYFNKVuanhspq d C-CDA narrative text[address] JwlkEhzaygcolFlbnhvpqqIQNQ15133012 42XSTBWFFDGIKKFUCQPJKTUB7172-36-87 T10:31:201.2.840.693700.1.72.3.15| 1.2.840.885475.1.13.104.2.7.2.7278 79_[id number] [facility] 2023-03-21 16:37:27 QKCSHi/rhMd5jQQpOlQx Wm1s6wuj6eGHXm nWs4gxUS82hN664ZpftG5WriKr1YB17380 -01-08T16:37:27 Images from the original note were not included.Your upcoming procedure is at [facility] on 03/25/23. The address is [address] [place] [address], [facility].The nursing staff at [facility] will call you the workday before your procedure to let you know what time to arrive. When you arrive, please go inside and sign in at the desk.Please note: You may not travel home alone after your procedure and that includes in a taxi or by bus. We must speak to your Responsible Adult (who will be picking you up) the morning of your procedure, before the start of your procedure. This person must be an adult over the age of 18 years of age.Maintain a clear liquid diet the entire day before your procedure. Do not drink anything containing red, blue, or purple dyes. Follow the instructions of your bowel prep as directed by you physician. You may also take your medications the morning of your procedure with a sip of water as directed by physician.Anticoagulants will be per physician Guidance. Medication Note(s)/Instructions: Instructions given to hold to hold topiratmate evening before and morning of procedure.Both patient and person accompanying and/or picking patient up must be able to wear a mask and be without symptoms of COVID 19.Pending screening, a COVID test may be required. If a patient tests positive, their cases are cancelled and/or rescheduled. COVID NOTE: Denies COVID symptoms or exposure, no testing required.Additional questions, concerns, requests: Patient given OPC number for financial related questions. CB number here provided.Patient verbalized understanding of pre-op instructions and voiced no further questions at this time. 64493-6Gwxkr VlubNH7794-74-42C32:41:17Nurse NoteTXT1.2.840.558594.1.13.104.2.7 .2.513094|[id number] for patient dimt00469-2WxzyUBQOICAYYEQKwkqfymc d C-CDA narrative [id number] 11JKTAEKUXSQTLJOKUCHWXFG1507-51-33 T16:41:171.2.840.401272.1.72.3.15| 1.2.840.806316.1.13.104.2.7.2.7278 79_[id number] [facility] 2023-03-03 13:00:00 sTFFo+CpZXN2FsKTnuKu N4qd29LuYI9Uo+ ckNqhGl3o9fkOF+dZ7MfcsKHUtVYxu0408 -12-21T13:00:00Addended by: SAMRA JOY on: 03/03/2023 03:49 PMModules accepted: Level of Service 31081-4Bdtdkemm EgvjfjtgOR2974-50-77O28:49:20Adden dum DocumentTXT1.2.840.552070.1.13.104 .2.7.2.567506|[id number] e for patient xikp71220-4FvfyCATBSZQGYQSPqjkdljl d C-CDA narrative [id number] 93EPISZKEWKWRKKDHFYWVORX9213-41-06 T15:49:201.2.840.956229.1.72.3.15| 1.2.840.109890.1.13.104.2.7.2.7278 79_[id number] [facility] 2023-03-03 13:00:00 lPi8gvTTEQ9Y69pGceS/ 1gv9Ekbjdxd8Ri QQecZFokKff+gfnYnGxsAGjMPbFEuQ4995 -12-21T13:00:00Addended by: CASIE CHIN LVN on: 03/03/2023 04:07 PMModules accepted: Orders 12015-4Lvwidztb BehlxmcdSB6282-59-85K84:07:05Adden dum DocumentTXT1.2.840.955648.1.13.104 .2.7.2.477945|[id number] e for patient kopl69183-7XkxiKWWHDNGWHEIJujgdirm d C-CDA narrative text[address] HbmsTlqwhtaqiZegxypwqzRQWR81786659 48CCTWUNAUPQIJOVBWAXMPMX8237-14-75 T16:07:051.2.840.356712.1.72.3.15| 1.2.840.730599.1.13.104.2.7.2.7278 79_[id number] [facility]
[2023-06-23] MEDS ORDERED: IBUPROFEN 400 MG TAB ONE (20:38)
[2023-06-23] MEDS ORDERED: methocarbamoL 750 MG TAB ONE (20:38)
[2023-06-23] MEDS ORDERED: CODEINE 30MG/APAP 300MG TAB ONE (20:38)
--- NOTE | 2023-06-23 21:28 | RAD REPORT ---
EXAM DESCRIPTION: RAD - Foot Right 3 View - 06/23/2023 8:57 pm CLINICAL HISTORY: foot pain right COMPARISON: Ankle Right 3 View dated 06/23/2023 FINDINGS/IMPRESSION: No acute fracture. Surgical changes at the first proximal phalanx including pr esumed bunionectomy. No significant focal degenerative changes.
--- NOTE | 2023-06-23 21:28 | RAD REPORT ---
EXAM DESCRIPTION: RAD - Ankle Right 3 View - 06/23/2023 8:56 pm CLINICAL HISTORY: Pain !! COMPARISON: No comparisons FINDINGS/IMPRESSION: No acute fracture. No malalignment. No significant focal degenerative changes.
--- NOTE | 2023-06-23 21:52 | ER ---
Nurse's Notes [facility] Name: Prema Toro Age: 47 yrs Sex: Female : 1975 Arrival Date: 06/23/2023 Time: 20:15 Bed 5 Private MD: Diagnosis: Sprain of ankle;Sprain of unspecified ligament of right ankle Presentation: 06/22 20:27 Chief complaint: Patient states: Pt states she overturned her right ankle tonight while tl4 walking in her residence. Pt c/o severe pain to lateral right ankle. PMS intact. Coronavirus screen: At this time, the client does not indicate any symptoms associated with coronavirus-19. Ebola Screen: No symptoms or risks identified at this time. Initial Sepsis Screen: Does the patient meet any 2 criteria? No. Patient's initial sepsis screen is negative. Does the patient have a suspected source of infection? No. Patient's initial sepsis screen is negative. Risk Assessment: Do you want to hurt yourself or someone else? Patient reports no desire to harm self or others. Onset of symptoms was June 23, 2023 at 19:30. 20:27 Method Of Arrival: Wheelchair tl4 20:27 Acuity: PAKO 4 tl4 Triage Assessment: 20:30 General: Appears uncomfortable, Behavior is calm, cooperative. Pain: Complains of pain tl4 in right ankle. EENT: No signs and/or symptoms were reported regarding the EENT system. Neuro: Level of Consciousness is awake, alert, obeys commands, Oriented to person, place, time, situation, Moves all extremities. Speech is normal. Cardiovascular: Capillary refill < 3 seconds Patient's skin is warm and dry. Respiratory: Airway is patent Respiratory effort is even, unlabored, Respiratory pattern is regular, symmetrical. GI: No signs and/or symptoms were reported involving the gastrointestinal system. : No signs and/or symptoms were reported regarding the genitourinary system. Derm: No signs and/or symptoms reported regarding the dermatologic system. Musculoskeletal: Swelling present in right lateral ankle. Injury Description: pt overturned right ankle. Historical: - Allergies: 20:29 Valtrex; tl4 - Home Meds: 20:29 metoprolol succinate 25 mg oral Tablet, Extended Release 24 hr 1 tab daily [Active]; tl4 Toprol XL Oral [Active]; - PMHx: 20:29 Migraine; Hypertensive disorder; tl4 - PSHx: 20:29 Bunionectomy right great toe; tl4 - Immunization history:: Adult Immunizations unknown. - Infectious Disease History:: Denies. - Social history:: Smoking status: Patient denies any tobacco usage or history of. - Family history:: not pertinent. Screenin:30 [facility] ED Fall Risk Assessment (Adult) History of falling in the last 3 months, tm6 including since admission Yes- single mechanical fall (1 pt) Confusion or Disorientation No (0 pts) Intoxicated or Sedated No (0 pts) Impaired Gait Yes (1 pt) Mobility Assist Device Used No (0 pt) Altered Elimination No (0 pt) Score/Fall Risk Level 0 - 2 = Low Risk Oriented to surroundings, Maintained a safe environment. Abuse screen: Denies threats or abuse. Denies injuries from another. Nutritional screening: No deficits noted. Tuberculosis screening: No symptoms or risk factors identified. Assessment: 21:10 General: Appears in no apparent distress. uncomfortable, Behavior is calm, cooperative. tm6 Pain: Complains of pain in right leg and lateral aspect of right foot and right ankle Pain currently is 8 out of 10 on a pain scale. Quality of pain is described as throbbing. Neuro: Level of Consciousness is awake, alert, obeys commands, Oriented to person, place, time, situation. 21:30 Cardiovascular: No deficits noted. Patient's skin is warm and dry. Respiratory: Airway tm6 is patent Respiratory effort is even, unlabored, Respiratory pattern is regular, symmetrical. GI: No signs and/or symptoms were reported involving the gastrointestinal system. Abdomen is round non-distended. : No signs and/or symptoms were reported regarding the genitourinary system. EENT: No signs and/or symptoms were reported regarding the EENT system. Derm: No signs and/or symptoms reported regarding the dermatologic system. Musculoskeletal: Reports pain in right ankle Pain is 8 out of 10 on a pain scale. 21:55 Reassessment: Patient and/or family updated on plan of care and expected duration. Pain tm6 level reassessed. Patient is alert, oriented x 3, equal unlabored respirations, skin warm/dry/pink. Vital Signs: 20:27 BP 110 / 80; Pulse 100; Resp 16; Temp 98.2(TE); Pulse Ox 100% ; Weight 97.52 kg; Height tl4 5 ft. 3 in. ; Pain 8/10; 21:30 BP 105 / 65; Pulse 96; Pulse Ox 97% on R/A; tm6 21:55 BP 105 / 65; Pulse 88; Resp 19; Temp 97.1(TE); Pulse Ox 96% on R/A; tm6 20:27 Body Mass Index 38.09 (97.52 kg, 160.02 cm) tl4 20:27 Pain Scale: Adult tl4 [place] Coma Score: 20:41 Eye Response: spontaneous(4). Motor Response: obeys commands(6). Verbal Response: sp4 oriented(5). Total: 15. ED Course: 20:19 Patient arrived in ED. gm2 20:25 Valeriano Fonseca MD is Attending Physician. sp4 20:29 Triage completed. tl4 20:32 Arm band placed on right wrist. tl4 20:58 Ankle Right 3 View XRAY In Process Unspecified. EDMS 20:58 Foot Right 3 View XRAY In Process Unspecified. EDMS 21:10 Marie Chappell, RN is Primary Nurse. tm6 21:30 Patient has correct armband on for positive identification. Placed in gown. Bed in low tm6 position. Call light in reach. Side rails up X2. Provided Education on: plan of care. Client placed on continuous cardiac and pulse oximetry monitoring. NIBP monitoring applied. Pulse ox on. NIBP on. Door closed. Noise minimized. Warm blanket given. 21:30 No provider procedures requiring assistance completed. tm6 22:07 Patient did not have IV access during this emergency room visit. tm6 Administered Medications: 20:42 Drug: Acetaminophen-Codeine PO (300 mg-30 mg) 2 tabs PO once; RASS on ADMIN: Combtv4, tl4 Very Agttd3, Agttd2, Rstlss1, AlertClm0, Drwsy-1, Lt Sdtn-2, Mod Sdtn-3, Dp Sdtn-4, UnArsble-5 Route: PO; 20:42 Drug: Methocarbamol PO 1500 mg PO once Route: PO; tl4 20:42 Drug: Ibuprofen PO 800 mg PO once Route: PO; tl4 Medication: 21:30 VIS not applicable for this client. tm6 Outcome: 21:51 Discharge ordered by . esau 22:05 Discharged to home tm6 22:05 Condition: stable 22:05 Discharge instructions given to patient, family, Instructed on discharge instructions, follow up and referral plans. medication usage, crutch walking, Demonstrated understanding of instructions, follow-up care, medications, crutch walking, 22:06 Patient left the ED. tm6 Signatures: Dispatcher [employer] EDMS Valeriano Fonseca MD MD sp4 Shi Boone Marie Quinones RN RN tm6 Donnie Abernathy RN RN tl4
--- NOTE | 2023-06-23 21:52 | EDPHYS ---
Physician Documentation [facility] Name: Prema Toro Age: 47 yrs Sex: Female : 1975 Arrival Date: 06/23/2023 Time: 20:15 Bed 5 Private MD: ED Physician Valeriano Fonseca HPI: 06/22 20:25 This 47 yrs old Female presents to ER via Unassigned with complaints of Foot sp4 Injury, Ankle Swelling, Fall Injury. 20:41 47-year-old female with history of migraine and hypertension presents with acute with sp4 injury to the right ankle at 7:30 PM. Patient states she rolled her ankle inward. Moderate swelling to the right side of the ankle and also there is pain on weightbearing. . Historical: - Allergies: 20:29 Valtrex; tl4 - Home Meds: 20:29 metoprolol succinate 25 mg oral Tablet, Extended Release 24 hr 1 tab daily [Active]; tl4 Toprol XL Oral [Active]; - PMHx: 20:29 Migraine; Hypertensive disorder; tl4 - PSHx: 20:29 Bunionectomy right great toe; tl4 - Immunization history:: Adult Immunizations unknown. - Infectious Disease History:: Denies. - Social history:: Smoking status: Patient denies any tobacco usage or history of. - Family history:: not pertinent. ROS: 20:41 MS/extremity: Positive for of the right ankle and lateral aspect of right foot, sp4 20:41 MS/extremity: Positive for of the Right lateral malleolus mild swelling associated with tenderness without deformity. Intact neurovascular status, 20:41 Constitutional: Negative for fever, chills, and weight loss, Eyes: Negative for injury, pain, redness, and discharge, ENT: Negative for injury, pain, and discharge, Neck: Negative for injury, pain, and swelling, Cardiovascular: Negative for chest pain, palpitations, and edema, Respiratory: Negative for shortness of breath, cough, wheezing, and pleuritic chest pain, Abdomen/GI: Negative for abdominal pain, nausea, vomiting, diarrhea, and constipation, Back: Negative for injury and pain, MS/Extremity: Positive for right ankle pain and swelling Skin: Negative for injury, rash, and discoloration, Neuro: Negative for headache, weakness, numbness, tingling, and seizure, Psych: Negative for depression, anxiety, Allergy/Immunology: Negative for hives, rash, and allergies Endocrine: Negative for neck swelling, polydipsia, polyuria, polyphagia, and weight changes Hematologic/Lymphatic: Negative for swollen nodes, abnormal bleeding, and unusual bruising 20:41 All other systems are negative, Exam: 20:41 Constitutional: This is a well developed, well nourished patient who is awake, alert, sp4 and in no acute distress. Head/Face: Normocephalic, atraumatic. Eyes: Pupils equal round and reactive to light, extra-ocular motions intact. Lids and lashes normal. Conjunctiva and sclera are not injected. Cornea within normal limits. Periorbital areas with no swelling, redness, or edema. ENT: Nares patent. No nasal discharge, no septal abnormalities noted. Tympanic membranes are normal and external auditory canals are clear. Oropharynx with no redness, swelling, or masses, exudates, or evidence of obstruction, uvula midline. Mucous membranes moist. Neck: Trachea midline, no thyromegaly or masses palpated, and no cervical lymphadenopathy. Supple, full range of motion without nuchal rigidity, or vertebral point tenderness. Chest/axilla: Normal chest wall appearance and motion. Nontender with no deformity. No lesions are appreciated. Cardiovascular: Regular rate and rhythm with a normal S1 and S2. No gallops, murmurs, or rubs. Normal PMI, no JVD. No pulse deficits. Respiratory: Lungs have equal breath sounds bilaterally, clear to auscultation and percussion. No rales, rhonchi or wheezes noted. No increased work of breathing, no retractions or nasal flaring. Abdomen/GI: Soft, with normal bowel sounds. No distension or tympany. No guarding or rebound. No evidence of tenderness throughout. Back: No spinal tenderness. No costovertebral tenderness. Skin: Warm, dry with normal turgor. Normal color with no rashes, no lesions, and no evidence of cellulitis. MS/ Extremity: Pulses equal, no cyanosis. Neurovascular intact. Full, normal range of motion. Right lateral ankle swelling and tenderness without deformity Neuro: Awake and alert, GCS 15, oriented to person, place, time, and situation. Cranial nerves II-XII grossly intact. Motor strength 5/5 in all extremities. Sensory grossly intact. Psych: Awake, alert, with orientation to person, place and time. Behavior, mood, and affect are within normal limits Vital Signs: 20:27 BP 110 / 80; Pulse 100; Resp 16; Temp 98.2(TE); Pulse Ox 100% ; Weight 97.52 kg; Height tl4 5 ft. 3 in. ; Pain 8/10; 21:30 BP 105 / 65; Pulse 96; Pulse Ox 97% on R/A; tm6 21:55 BP 105 / 65; Pulse 88; Resp 19; Temp 97.1(TE); Pulse Ox 96% on R/A; tm6 20:27 Body Mass Index 38.09 (97.52 kg, 160.02 cm) tl4 20:27 Pain Scale: Adult tl4 [place] Coma Score: 20:41 Eye Response: spontaneous(4). Motor Response: obeys commands(6). Verbal Response: sp4 oriented(5). Total: 15. MDM: 20:27 Patient medically screened. sp4 21:55 Differential diagnosis: fracture, sprain, foreign body, arthritis, gout, cellulitis. sp4 Data reviewed: vital signs, nurses notes, radiologic studies, plain films. Consideration of Admission/Observation Escalation of care including admission/observation considered. ED course: No sign of acute fracture. Stable for discharge home with Ortho boot for 2 weeks and crutches for 2 weeks.. Will advise follow-up with primary care physician for repeat evaluation in 2-weeks . 06/22 20:37 Order name: Ankle Right 3 View XRAY; Complete Time: 21:42 sp4 06/22 20:37 Order name: Foot Right 3 View XRAY; Complete Time: 21:42 sp4 06/22 21:50 Order name: Crutch Training; Complete Time: 22:05 sp4 06/22 21:50 Order name: Ortho shoe: Right ortho boot - applied by MD ; Complete Time: 21:57 sp4 Administered Medications: 20:42 Drug: Acetaminophen-Codeine PO (300 mg-30 mg) 2 tabs PO once; RASS on ADMIN: Combtv4, tl4 Very Agttd3, Agttd2, Rstlss1, AlertClm0, Drwsy-1, Lt Sdtn-2, Mod Sdtn-3, Dp Sdtn-4, UnArsble-5 Route: PO; 20:42 Drug: Methocarbamol PO 1500 mg PO once Route: PO; tl4 20:42 Drug: Ibuprofen PO 800 mg PO once Route: PO; tl4 Disposition Summary: 06/23/23 21:51 Discharge Ordered Notes: Location: Home sp4 Problem: new sp4 Symptoms: have improved sp4 Condition: Stable sp4 Diagnosis - Sprain of ankle sp4 - Sprain of unspecified ligament of right ankle sp4 Followup: sp4 - With: Private Physician - When: 7 - 10 days - Reason: Recheck today's complaints Discharge Instructions: - Discharge Summary Sheet sp4 - Ankle Sprain, [id number] sp4 Forms: - Patient Portal Instructions sp4 Prescriptions: - methocarbamol 750 mg Oral tablet - take 2 tablets ORAL route 3 times per day PRN muscle soreness; 40 tablet; sp4 Refills: 0, Product Selection Permitted Signatures: Dispatcher [employer] Valeriano Salazar MD MD sp4 Donnie Abernathy RN RN tl4
[2023-06-24 05:51] VITALS: BP 105/65; TEMP 98.2; O2SAT 97
== END 2023-06-23 22:06 | disposition home or self-care (01) ==
LOC: ER 20:15
DX: S93.401A Sprain of unspecified ligament of right ankle, initial encounter (principal); Z88.8 Allergy status to other drugs, medicaments and biological substances
CPT/HCPCS: 99284